=== PATIENT | female | born 1995 | race Asian ===

== ENCOUNTER 2022-06-29 21:36 | Emergency (ER) | payer OTHER, SELFPAY ==
[2022-06-29 21:40] VITALS: BP 113/56; PULSE 92; RESP 18; TEMP 36.6; O2SAT 99
--- NOTE | 2022-06-29 23:18 | ED.SKABFB ---
HPI - Skin/Abscess/Foreign Bdy General Chief complaint: Skin/Abscess/Foreign Body Stated complaint: itching to left leg Time Seen by Provider: 06/29/22 21:50 Source: patient Mode of arrival: ambulatory Limitations: no limitations History of Present Illness HPI narrative: Patient is a 26-year-old female who presents to the ED with report of red rash to lower legs. Patient reports having circular itchy lesions to her left posterior calf and right posterior thigh. She states she just noticed the lesions yesterday. They are very itchy, but nonpainful. She denies any other current lesions elsewhere. She does report having a lesion on her back last week that resolved on its own. She has not tried anything for her symptoms. Denies any new soaps, laundry detergents, lotions, known insect bites. Patient is currently 6 months . She denies any abdominal pain, abdominal rash, vaginal bleeding, leakage of fluid, fevers, difficulty breathing or swallowing. Related Data Allergies Allergy/AdvReac Type Severity Reaction Status Date / Time No Known Allergies Allergy Verified 06/29/22 23:02 Review of Systems Review of Systems: CONSTITUTIONAL: Denies fever, chills, or sweats. GASTROINTESTINAL: Denies abdominal pain, nausea, vomiting, or diarrhea. GENITOURINARY: Denies vaginal bleeding, dysuria or hematuria. SKIN: See HPI. MUSCULOSKELETAL: See HPI. NEUROLOGIC: Denies tingling, numbness, or weakness. All systems reviewed & are unremarkable except as noted in HPI and below PMFSH Past Medical History Medical History (Updated 06/30/22 @ 01:49 by Jen Green PA-C) No pertinent past medical history Surgical History Surgical History (Updated 06/30/22 @ 01:49 by Jen Green PA-C) No pertinent past surgical history Social History Social History (Updated 06/30/22 @ 01:49 by Jen Green PA-C) Smoking status: Never smoker Exam Narrative: GENERAL: Well appearing, well-nourished, non-toxic, in no acute distress. HEAD: Normocephalic, atraumatic. NECK: Supple. No adenopathy, no masses. RESPIRATORY: Airway patent, respirations nonlabored. CARDIOVASCULAR: Regular rate and rhythm without murmurs, rubs, or gallops. Peripheral pulses 2+ and equal bilaterally. ABDOMINAL: Soft, uterus gravid, nontender, nondistended, no hepatosplenomegaly. Normoactive BS. MUSCULOSKELETAL: Moves all extremities. Strength/ROM intact without gross deformities. SKIN: Warm, dry, normal color. 1 erythematous circular papule, nickel sized to left lateral posterior calf, nontender. 4-5 smaller erythematous circular papules to right posterior distal thigh/knee, nontender. NEURO: A&O X3. Speech clear. Cranial nerves II-XII grossly intact. Steady gait. No ataxic movements. PSYCHIATRIC: Appropriate mood and affect. Normal interaction. Course Vital Signs Vital signs: Vital Signs Temperature 98 F 06/29/22 21:40 Pulse Rate 92 06/29/22 21:40 Respiratory Rate 18 06/29/22 21:40 Blood Pressure 113/56 L 06/29/22 21:40 Pulse Oximetry 99 06/29/22 21:40 Oxygen Delivery Room Air 06/29/22 21:40 Temperature 98 F 06/29/22 21:40 Pulse Rate 92 06/29/22 21:40 Respiratory Rate 18 06/29/22 21:40 Blood Pressure 113/56 L 06/29/22 21:40 Pulse Oximetry 99 06/29/22 21:40 Oxygen Delivery Room Air 06/29/22 21:40 MDM - Skin/Abscess/Foreign Bdy MDM Narrative Medical decision making narrative: Patient presented to ED with few small scattered papular lesions, itchy. Exam most consistent with insect bites versus mosquito bites versus contact dermatitis. Does not appear urticaria like. Does not appear psoriasis or plaque-like. No pustules, vesicles, blisters. No surrounding redness, warmth or other signs of infection. No systemic signs of infection. Patient is currently . Denies issues with . Denies abdominal pain or bleeding. Denies abdominal rash new stretch velazco. This does
[2022-06-29] MEDS: diphenhydrAMINE HCl CAP 25 MG CAPSULE PO (23:28)
== END 2022-06-29 23:31 | disposition home or self-care (01) ==
PROVIDERS: Emergency Provider Physician Assistant
DX: L25.9 Unspecified contact dermatitis, unspecified cause (principal); S80.862A Insect bite (nonvenomous), left lower leg, initial encounter; W57.XXXA Bitten or stung by nonvenomous insect and other nonvenomous arthropods, initial encounter
CPT/HCPCS: 99283; A9270

== ENCOUNTER 2022-09-14 04:58 | Inpatient (IN) | payer OTHER, MEDICAID, SELFPAY ==
[2022-09-14] VITALS (233 sets, daily range): BP systolic 67–197; BP diastolic 45–175; PULSE 58–224; RESP 16–18; TEMP 36.5–39.4; O2SAT 78–100; BMI 27.4
--- NOTE | 2022-09-14 05:45 | LDADM ---
This patient, Benjamin Lopez, was admitted to Labor/Delivery/Recovery 107 on 09/14/22 at 04:58. Plans for labor, pain management and were discussed with patient. Patient/family oriented to hospital policies and general routines including ID bracelet, bed and alarms, visiting hours, pain management, procedures, bathroom and other care routines, personal items, smoking policy, room service/diet and guest tray routines, infant security routines, and visiting hours. Patient/Family are encouraged to report perceived risks to care and to ask questions if they do not understand what they are told or what they should do. See [facility]BIX for further documentation.
[2022-09-14] MEDS: OXYTOCIN 30 UNITS/NS 500 ML 30 UNITS/500 ML BAG 6 UNITS IV CONT (05:56)
[2022-09-14] MEDS: LACTATED RINGERS 1,000 ML 125 ML IV CONT ×4 (05:56→22:00)
[2022-09-14 06:02] LABS: Basophils Percent Auto 0.3 % (0.2-1.2); Eosinophils Absolute Auto 0.2 K/mm3 (0-0.3); Eosinophils Percent Auto 1.4 % (0-4.4); Hematocrit 38.2 % (37.0-47.0); Hemoglobin 13.1 g/dL (12.0-15.0); Immature Granulocyte Absolute 0.12 K/mm3 (0.00-0.031); Immature Granulocyte Percent A 1.1 % (0-0.5); Lymphocytes Absolute Auto 2.73 K/mm3 (0.9-3.2); Mean Corpuscular HGB Conc 34.3 g/dl (32-36); Mean Corpuscular Hemoglobin 32.6 pg (26-34); Mean Platelet Volume 11.4 fl (7.4-10.4); Monocytes Absolute Auto 0.7 K/mm3 (0.1-0.6); Monocytes Percent Auto 5.7 % (2.6-8.5); Neutrophils Absolute Auto 7.7 K/mm3 (1.3-6.7); Neutrophils Percent Auto 67.5 % (45.5-73.1); Platelet Count Result 218 k/mm3 (150-375); Red Blood Count 4.02 M/mm3 (4.2-5.4); Red Cell Distribution Width 12.7 % (11.5-14.5); White Blood Count 11.4 K/mm3 (4.5-10.0)
--- NOTE | 2022-09-14 08:28 | WPDHPUPDATE1 ---
History and Physical Update Update Date/Time: 09/14/22 08:28 26-year-old 1 at term who presented with rupture membranes. Reassuring heart tones, to start Pitocin and external monitoring and expectant management. History and Physical has been reviewed, including an updated exam of the patient. There are NO changes in the patient's condition. Risks, benefits, and alternatives have been discussed and questions answered. Patient agrees to proceed with procedure.
[2022-09-14] MEDS: fentaNYL CITRATE INJ (*CRX) 100 MCG/2 ML VIAL 50 MCG IV PUSH (08:37)
--- NOTE | 2022-09-14 09:31 | WPDANESEPPF ---
Anes - Initial Pre Proc Eval Date/Time: 09/14/22 09:31 Surgeon: Day Villalta MD Pre Op Diagnosis: SROM Patient Data Age: 26 Gender: F Height: 1.55 m Weight: 65.9 kg Last Vital Signs Temp 36.6 C 09/14/22 06:30 Pulse 72 09/14/22 09:29 Resp 16 09/14/22 06:30 BP 108/61 09/14/22 09:29 Pulse Ox 100 09/14/22 09:30 O2 Del Method Room Air 09/14/22 05:45 Allergies Allergy/AdvReac Type Severity Reaction Status Date / Time doxycycline Allergy Rash Verified 09/14/22 06:32 Home Medications Medication Instructions Recorded Confirmed Type betamethasone valerate 0.1 % 1 applic topical BID PRN itching 06/29/22 Rx topical cream #15 grams albuterol sulfate 90 mcg/actuation inhalation 08/29/22 History aerosol inhaler prenat.vits,danni,zad-pwvy-sloqc 1 tablet 08/29/22 History Laboratory Tests 09/14/22 05:55 WBC 11.4 H K/mm3 (4.5-10.0) RBC 4.02 L M/mm3 (4.2-5.4) Hgb 13.1 g/dL (12.0-15.0) Hct 38.2 % (37.0-47.0) MCV 95.0 fl (80-100) MCH 32.6 pg (26-34) MCHC 34.3 g/dl (32-36) RDW 12.7 % (11.5-14.5) Plt Count 218 k/mm3 (150-375) MPV 11.4 H fl (7.4-10.4) Immature Gran % (Auto) 1.1 H % (0-0.5) Neut % (Auto) 67.5 % (45.5-73.1) Lymph % (Auto) 24.0 % (18.3-44.2) [place] % (Auto) 5.7 % (2.6-8.5) Eos % (Auto) 1.4 % (0-4.4) Baso % (Auto) 0.3 % (0.2-1.2) Lymph # (Auto) 2.73 K/mm3 (0.9-3.2) [place] # (Auto) 0.7 H K/mm3 (0.1-0.6) Eos # (Auto) 0.2 K/mm3 (0-0.3) Baso # (Auto) 0.0 K/mm3 (0.0-0.1) Abs Immat Gran (auto) 0.12 H K/mm3 (0.00-0.031) Absolute Neuts (auto) 7.7 H K/mm3 (1.3-6.7) Absolute Nucleated RBC 0.0 K/mm3 (0.0-0.012) Nucleated RBC % 0.0 % (0.0-0.2) RPR Pending Blood Type B Positive Antibody Screen Negative Patient hx anesthesia problems: none Family hx anesthesia problems: none Results Review: All pre-operative results and documents have been reviewed as part of the pre-operative evaluation. [facility] Past Medical History Medical History No pertinent past medical history Surgical History Surgical History No pertinent past surgical history Family History Family History Father Diabetes mellitus Social History Social History Smoking status: Never smoker Substance use: never Lack of Transportation: No Lack of Food: Never True Current Housing: I Have Housing Concerned About Future Housing: No Difficulty Paying Gas/Electric Bills: No Difficulty Paying for Meds: No Currently Unemployed: No Education: Bachelor's Degree Difficulty w/ Childcare or Family Care: No Spiritual care concerns: No Anes - Eval Final PreProcedure Day of Procedure 09/14/22 09:31 Patient weight: overweight Heart: regular rate and rhythm Lungs: clear to auscultation Neurological: alert and oriented ASA classification: II Emergent: no Anesthetic plan: proceed Anesthesia type and monitoring: regional epidural and standard monitoring Results Review: All pre-operative results and documents have been reviewed as part of the pre-operative evaluation. Informed Consent: The patient's anesthetic plan and its attendant risks and benefits were discussed with the patient/family/POA. Questions were solicited and answers provided to the satisfaction of the patient/family/POA.
[2022-09-14] MEDS: PHENYLEPHRINE 1,000 MCG/10 ML SYRINGE 100 MCG IV PUSH ×2 (10:37→10:49)
--- NOTE | 2022-09-14 14:50 | WPDOBADMIT ---
Obstetrics - Admit Note Admission Note: record reviewed. No pertinent additions to the history and/or any subsequent changes in the physical findings that are not consistent with the expected course of the were found. Pt arrived in labor with SROM, anticipate vaginal delivery Additions to the history and/or subsequent changes in the physical findings follow. None.
[2022-09-14] MEDS: LORATADINE 10 MG TABLET PO (17:06)
--- NOTE | 2022-09-14 21:09 | P.PCNOB_ITS ---
OB - Delivery Note Procedure Delivery date: 09/14/22 Procedure: Delivery augmentation: Pitocin Route of delivery: Laceration Description: Perineal - 1st Degree Delivery repair: vicryl Specimen: No Quantitative Blood Loss (ml): 85 Anesthesia type: Epidural Disposition: Floor Baby Date of : 09/14/22 Time of : 20:59 Weeks of gestation at delivery: 38 gender: Male presentation: vertex position: Left Occiput Anterior Placenta delivery description: Spontaneous Cord Vessel Description: 3 Vessels and Clamped/Cut score one minute: 8 score five minutes: 9 Narrative: head delivered and moved to GEORGE position, anterior arm delivered under pubic bone with out difficulty., compound presentation with both hands up, unab le to deliver posterior arm, slowly delivered body. mother and baby skin to skin in stable condition
[2022-09-14] MEDS: OXYTOCIN 30 UNITS/NS 500 ML 30 UNITS/500 ML BAG 125 UNITS IV CONT (21:28)
[2022-09-14] MEDS: ONDANSETRON INJ 4 MG/2 ML VIAL IV PUSH (21:40)
[2022-09-14] MEDS: IBUPROFEN 600 MG TABLET PO (22:00)
[2022-09-14] MEDS: AMPICILLIN 2 GM/NS 100 ML 2 GM/100 ML BAG 200 GM (22:40)
[2022-09-14] MEDS: ACETAMINOPHEN 325 MG TABLET 650 MG PO (23:21)
[2022-09-14] MEDS: DIBUCAINE 1% OINTMENT 30 GM TUBE 1 APPLIC TOPICAL (23:30)
[2022-09-14] MEDS: WITCH HAZEL 40 PADS 1 PAD TOPICAL (23:30)
[2022-09-14] MEDS: BENZOCAINE 20% AER SPR (*SP) 56 GM CAN 1 SPRAY TOPICAL (23:30)
--- NOTE | 2022-09-14 23:35 | OBPPTRN ---
Patient transferred to post room #292 via (wheelchair). Support person present. Oriented to unit, room, information board, rooming in, admission packet and security measures. Patient verbalizes understanding.
[2022-09-14] MEDS: CLINDAMYCIN 900 MG/D5W 50 ML 900 MG/50 ML PIGGYBACK 100 MG (23:50)
[2022-09-15] MEDS: GENTAMICIN 60 MG/50 ML NS 60 MG/50 ML BAG 100 MG IVPB ×3 (01:00→19:00)
[2022-09-15] MEDS: AMPICILLIN 1 GM/NS 50 ML 1 GM/50 ML BAG IVPB ×5 (03:00→19:45)
[2022-09-15 04:58] VITALS: BP 89/55; PULSE 95; RESP 16; TEMP 36.9; O2SAT 95
[2022-09-15 05:27] LABS: Hematocrit 28.5 % (37.0-47.0); Hemoglobin 9.7 g/dL (12.0-15.0)
[2022-09-15 07:45] VITALS: BP 106/63; PULSE 78; RESP 18; TEMP 36.3; O2SAT 97
[2022-09-15] MEDS: POLYSACCHARIDE IRON COMPLEX 150 MG CAPSULE PO ×2 (09:34→17:59)
[2022-09-15] MEDS: DOCUSATE SODIUM 100 MG CAPSULE PO ×2 (09:35→17:44)
[2022-09-15] MEDS: MULTIVIT/MIN/PREN/FOL AC/IRON TABLET 1 TAB PO (09:35)
[2022-09-15] MEDS: IBUPROFEN 600 MG TABLET PO ×2 (09:41→22:15)
--- NOTE | 2022-09-15 10:04 | P.PNOB_ITS ---
OB - PN: Subj Subjective Date/time seen: 09/15/22 10:04 Patient comments: no complaints, pain well controlled, incisional pain, tolerating diet and flatus present OB - PN: Obj Data Labs 09/15/22 05:16 Labs: Laboratory Results - last 24 hr 09/15/22 05:16 Hgb 9.7 L D Hct 28.5 L OB - PN A/P Plan day: 1 Plan: routine care Comments: No problems, routine care Time Spent With Patient Time: Total time spent is greater than 50% in coordination of care (as documented) at patient's floor/unit and/or counseling patient: Exam Const: General: comfortable, no acute distress and alert Resp: Effort & Inspection: normal respiratory effort Auscultation: no crackles, no rales and no rhonchi Cardio: Rate: regular rate Heart sounds: no click, no murmurs and no rubs GI: Inspection: non-distended GI Palp: No Tenderness to palpation present ( GI) Auscultation: normal bowel sounds Other: Incision - CDI Extrem: General: normal to inspection, no pedal edema and no calf tenderness
[2022-09-15] MEDS: CLINDAMYCIN 900 MG/D5W 50 ML 900 MG/50 ML PIGGYBACK 50 MG IVPB ×2 (10:23→17:44)
[2022-09-15 11:45] VITALS: BP 103/61; PULSE 79; RESP 16; TEMP 36.9; O2SAT 100
[2022-09-15] MEDS: LACTATED RINGERS 1,000 ML 125 ML IV CONT (15:36)
[2022-09-15 19:21] VITALS: BP 95/64; PULSE 88; RESP 18; TEMP 36.8; O2SAT 99
--- NOTE | 2022-09-16 07:16 | PM.OBPRVD ---
OB - Delivery Note Procedure Delivery date: 09/14/22 Procedure: Delivery augmentation: Pitocin Delivery monitor: External FHT and External Uterine Route of delivery: Laceration Description: Perineal - 1st Degree Delivery repair: vicryl Specimen: No Quantitative Blood Loss (ml): 85 Anesthesia type: Epidural Disposition: Floor Baby Date of : 09/14/22 Time of : 20:59 Weeks of gestation at delivery: 38 Infant gender: Male presentation: vertex position: Left Occiput Anterior Placenta delivery description: Spontaneous Cord Vessel Description: 3 Vessels and Clamped/Cut score one minute: 8 score five minutes: 9
--- NOTE | 2022-09-16 07:47 | PM.OBPNVD ---
OB - PN: Subj Subjective Date/time seen: 09/16/22 07:47 Patient comments: no complaints and pain well controlled baby status: doing well [place] feeding status: breast and bottle feeding Narrative: Afebrile since initial fever. s/p antibiotics. OB - PN: Obj Data Labs 09/15/22 05:16 OB - PN A/P Plan day: 2 Plan: routine care and discharge home Comments: circumcision today, consented. Time Spent With Patient Time: Total time spent is greater than 50% in coordination of care (as documented) at patient's floor/unit and/or counseling patient: Time with patient: less than 15 minutes Exam Narrative: NAD abdomen soft, nontender, fundus firm below the umbilicus Extremities nontender, 1+ edema
--- NOTE | 2022-09-16 07:49 | PM.OBDSVD ---
DS: Admitting Diagnosis Discharge Date 09/16/22 Admitting Diagnosis labor at 38w DS: Discharge Diagnosis Discharge Diagnosis (1) , delivered: Code(s): O80 - Encounter for full-term uncomplicated delivery Status: Acute OB - DS: Summary Hospital Course Hospital Course: Benjamin was admitted for labor at term and proceeded to have an uncomplicated vaginal delivery. She was febrile a couple hours after delivery and received antibiotics for 24 hours and had no further fevers. She was discharged home on PPD2 in stable condition. OB Procedures : Ultrasound OB Procedures Intrapartum: Spontaneous Vag Delivery OB Procedures: : None Peripartum Data Infant Delivery Method: Natural Vaginal complications: other (chorioamnionitis) Status at Discharge Functional status at discharge: independent ambulation Time Spent with Patient Time attestation: Total time spent providing and/or coordinating discharge services: Exam Narrative: NAD abdomen soft, appropriately tender Ext non tender, 1+ edema Discharge Plan Discharge Attending physician on discharge: Day Villalta Discharging Clinician: Day Villalta Anticipated Discharge Date/Time: 09/16/22 07:48 Patient Disposition: Home, Self-Care Activity: pelvic rest Diet: regular Patient Instructions: Antibiotic Form Stand Alone Forms: General Discharge Information Follow-up/Referrals: Day Villalta MD [Physician] - 4 Weeks Discharge Medications: Continued betamethasone valerate 0.1 % cream 1 applic topical BID PRN (Reason: itching) Qty: 15 0RF albuterol sulfate 90 mcg/actuation HFA aerosol inhaler INHALATION #2 Tablet 1 tablet Date of admission: 09/14/22 04:58 Primary Care Provider: PHYSICIAN NOT ON STAFF,NONSTAFF Admitting Provider: Day Villalta Attending physician on admission: Day Villalta Condition: Stable
[2022-09-16 08:00] VITALS: PULSE 85; RESP 16; O2SAT 99
[2022-09-16 08:45] VITALS: BP 100/61; PULSE 85; RESP 16; TEMP 36.9; O2SAT 99
[2022-09-16] MEDS: DOCUSATE SODIUM 100 MG CAPSULE PO ×2 (09:09→17:50)
[2022-09-16] MEDS: LORATADINE 10 MG TABLET PO (09:09)
[2022-09-16] MEDS: IBUPROFEN 600 MG TABLET PO ×2 (09:09→17:49)
[2022-09-16] MEDS: MULTIVIT/MIN/PREN/FOL AC/IRON TABLET 1 TAB PO (09:10)
[2022-09-16] MEDS: POLYSACCHARIDE IRON COMPLEX 150 MG CAPSULE PO ×2 (09:10→17:50)
[2022-09-16 13:50] LABS: Rapid Plasma Reagin Non-Reactive (NonReactive)
--- NOTE | 2022-09-16 14:10 | PC.NURSE ---
Report received this morning that mother is bottle feeding due to painful cramps.
[2022-09-17 10:49] VITALS: BP 101/71; PULSE 80; RESP 18; TEMP 37.1; O2SAT 100
== END 2022-09-16 19:20 | disposition home or self-care (01) | DRG 807 ==
LOC: ANHLDR 05:40 → ANHOB2 23:37
PROVIDERS: Advanced Practice Midwife; Admitting Provider Obstetrics & Gynecology; Visit Provider Obstetrics & Gynecology
DX: O69.81X0 Labor and delivery complicated by cord around neck, without compression, not applicable or unspecified (principal); Z37.0 Single live birth; O70.0 First degree perineal laceration during delivery; Z3A.38 38 weeks gestation of pregnancy
CPT/HCPCS: 36415; 85014; 85018; 85025; 86592; 86850; 86900; 86901; A9270; J0290; J1580; J2371; J2405; J2590; J2795; J3010; J7120

== ENCOUNTER 2024-06-01 13:18 | Outpatient (CLI) | payer OTHER, SELFPAY ==
[2024-06-01 14:38] LABS: Beta HCG Quantitative < 2.39 mIU/ML
--- OUTSIDE RECORDS SUMMARY | 2024-06-01 14:42 | XMS_ITS | Data Portability ---
Author Organization [facility] [place] Address [address] [place] [address] Care Team Providers Care Rotary Soil Stabilizer Name Role Phone DAY TORRES Primary Care Provider Assessment Encounter Date Assessment Date Assessment LastModified by Organization Details LastModified Time 10/14/2022 10/14/2022 Normal exam May resume normal activities contraceptive plan-- POP FU for WWE Jessee [email or web address] Not available 10/14/2022 17:12:42 03/19/2023 03/19/2023 Annual gynecological exam performed. Patient will come back in a year unless there are new symptoms. Take Calcium with Vitamin D 1200mg daily if not receiving in daily diet. It is strongly advised to have an annual flu shot and up can obtain at most pharmacies. If you have not had a TDap shot in the last 10 years you should obtain one as well. Discussed with patient & provided with information regarding Gardisil vaccine to prevent the 4 strains for HPV that cause cervical cancer if under age 26. Encourage safe sexual practices, to use condoms and limit partners if not already in a monogamous relationship. Do monthly self breast exams. Have mammogram yearly or every other year depending on family history. BRCA testing is now available for patients with strong genetic history of female cancer. If interested contact the office. Engage in daily exercise of low impact aerobic exercise 45-60 minutes 4-5 times weekly. Avoid tobacco and illicit drugs as well as using moderation with alcohol intake less than 1-2 8 oz beverages daily. This lifestyle behavior pattern will lead to less health conditions and longer life span. If BMI greater than 25 weight watchers or dietary consult advised. Patient received above instructions, and questions have been answered. If you have any questions please call or respond to this email. Patient was made aware of the patient portal and may obtain a paper copy of today's plan if desired. Not available 03/19/2023 09:50:17 Plan of Treatment Reminders Order Date Submit Date Provider Last Modified By Organization Details Last Modified Time Details Appointments NEW PATIENT PROBLEM 2024 12:15P Marie FAY MD Not available Not available Not available Lab None recorded. Referral None recorded. Procedures None recorded. Surgeries None recorded. Imaging None recorded. Medication Orders norethind ramon (contrace ptive) 0.35 mg tablet [address] [facility] [place], [address], 06/01/2024 12:56:36 norethind ramon (contrace ptive) 0.35 mg tablet [address] [facility] [place], [address], 06/01/2024 12:56:36 Patient TargetsNo targets recorded. Patient InstructionsNo instructions recorded. Reason for Referral None Reported. Results Created Date Observation Date Name Description Value Unit Range Abnormal Flag Note LastModifiedBy Organization Detail LastModifiedTime 03/19/1903/19/2023 IMAGE GUIDE D PAP, REFLE X HPV IF ASCUS ONLY image guided Pap, reflex HPV ASCUS only SEE RESULT S BELOW CASE REPOR T: Cytol ogy Gynec ologi danni Repor t Case: [id number] Autho rome trevino Provi surya: Karen Pearson, HOMA Colle cted: 03/19 1540 Order ing Locat ion: [place] [facility] Recei anali: 03/20 0740 First Scree n: Norah Reese, CT Rescr een: Malgorzata Cabrera Speci men: Scree bob Pap - Image d, Cervi x STATE MENT OF ADEQU ACY: Satis facto ry for evalu ation Trans forma tion zone compo nent absen t The absen ce of an endoc ervic al compo nent was confi rmed by an addit ionrica hernandez ner. FINAL DIAGN OSIS: Negat moris for Intra epith elial Lesio n or Tellojesenia tommy (NIL) . Elect nataly henry nilton d by Malgorzata Cabrera on 2023 at 5:52 PM ----- ----- ----- ----- ----- ----- ----- ----- ----- ----- ----- ----- ----- ----- ----- ----- ----- ---- COMME NT: This speci men was revie wed by a Cytot echno logis t and/o r Patho logis t (as indic ated in this repor t) after evalu ation using the Thinp rep Imagi ng Syste m. CLINI DANNI INFOR MATIO N: Menst rual Statu s: LMP (if appli cable ): Clini danni Histo ry/Pr eviou s Pap: Type of Neopl alfie (if appli cable ): Signi fican t Clini danni Findi ngs: Other Histo ry: Hormo sachi (if appli cable ): PAP EDUCA SYLVIA L NOTE: The Pap Test is a scree bob test with an inher ent false negat moris rate. Liqui d-bas ed sampl ing may decre ase, but will not elimi genaro, false negat moris resul ts. A negat moris resul t does not precl ude the prese nce and/o r devel opmen t of disea se, since the prese nce of abnor mal cells in the sampl e depen ds on the locat ion of the lesio n and sampl ing techn ique. Carlos nued regul ar scree bob is the best metho d of cance r preve ntion . If repor vinnie cytol ogic findi ng do not corre late with physi danni and/o r histo rical findi ngs, furth er inves tigat ion is recom maria luz d, as clini nataly hilton nted. Not Available [facility] (Lab) [address], [place], [address], 03/21/2023 18:55:40 08/29/19 23 08/28/2022 US, obste tric, follo w-up No observ ation record ed. [email or web address] [address], [place], [address], 10/10/2022 15:37:04 08/29/19 23 08/28/2022 US, obste tric, follo w-up No observ ation record ed. [email or web address] [place] [address], [place], [address], 08/28/2022 13:49:42 Result Notes None recorded. Problems Name Problem SNOMED Code Status Onset Date Resolution Date Notes Provider Name and Address Organization Details Recorded Time 58356511 Completed 202209/26/2022 Ruddy Grantle [facility], [facility] 3 13:34:22 Asthma in 31366043769 103 Completed Martaaney Corrie [facility], [facility] 3 13:34:16 Asthma in 51300046891 103 Active Martaaney Corrie [facility], [facility] 3 13:34:16 Anxiety in 19386217826 109 Active zoloft Ruddy Alexanderizzle [facility], [facility] 3 13:34:16 Anxiety in 28058864082 109 Completed zoloft Martaaney Corrie [facility], [facility] 3 13:34:16 Uterine size for dates discrepan cy 517371536 Active Martaaney Corrie [facility], [facility] 3 13:34:16 Uterine size for dates discrepan cy 199363983 Completed Martaaney Corrie [facility], [facility] 3 13:34:16 Problem Notes None recorded. Procedures Surgical History Date Name Laterality Status Provider Name and Address Organization Details Recorded Time 03/19/2023 Date of Last Pap Smear completed [place] Waters [facility] 06/01/2024 12:56:59 Imaging Results Imaging Date Name Status LastModified by Organiz ation Details LastModified Time 08/28/2022 US, obstetric, follow-up completed [email or web address] [address], [place], [address], 10/10/2022 15:37:04 08/28/2022 US, obstetric, follow-up completed [email or web address] [place] [address], [place], [address], 08/28/2022 13:49:42 Procedure Notes None recorded. Medical Equipment None Reported. Allergies Allergen ID Allergen Name Allergen Category Reaction Reaction Severity Criticality Documentation Date Start Date Code Code System Note Provider Name and Address Organization Details Recorded Time 94632 doxycycli ne Not available rash Not available Not available 02/20/2022 3640 RxNorm Ericka dent, [facility] 2 12:53:16 Medications Name Sig Start Date Stop Date Status Note LastModified by Organization Details LastModified Time Diflucan 150 mg tablet Take 1 tablet every 72 hours by oral route for 6 days. 10/14 completed Not Available Not Available Not Available levothyroxi ne 25 mcg tablet Take 1 tablet every day by oral route. 10/14 completed Not Available Not Available Not Available betamethaso ne valerate 0.1 % topical cream 10/14 completed Not Available Not Available Not Available albuterol sulfate HFA 90 mcg/actuati on aerosol inhaler Inhale 2 puffs every 4 hours by inhalatio n route as needed. 10/14 completed Not Available Not Available Not Available norethindro ne (contracept moris) 0.35 mg tablet TAKE 1 TABLET BY MOUTH ONCE DAILY 06/01 completed Not Available Not Available Not Available sertraline 50 mg tablet Take 1 tablet every day by oral route. 10/14 completed Not Available Not Available Not Available metoclopram jenna 10 mg tablet Take 1 tablet 4 times a day by oral route. 10/14 completed Not Available Not Available Not Available 06/01 completed Not Available Not Available Not Available Vitals Date Recorded Body height Body mass index (BMI) Body weight Systolic blood pressure Diastolic blood pressure Provider Name and Address Organization Details Last Updated DateTime 09/11/2022 154.94 cm 27.4 kg/m2 64898.89 365 g 101 mm[Hg] 64 mm[Hg] [facility] 3 11:16:35 Date Recorded Body height Body mass index (BMI) Body weight Systolic blood pressure Diastolic blood pressure Provider Name and Address Organization Details Last Updated DateTime 10/14/2022 154.94 cm 24 kg/m2 51581.23 g 105 mm[Hg] 72 mm[Hg] [facility] 3 16:53:29 Date Recorded Body height Body mass index (BMI) Body weight Systolic blood pressure Diastolic blood pressure Provider Name and Address Organization Details Last Updated DateTime 03/19/2023 154.94 cm 25.9 kg/m2 21799.15 g 100 mm[Hg] 68 mm[Hg] Manda Mak [facility] 4 09:36:19 Date Recorded Body height Body mass index (BMI) Body weight Systolic blood pressure Diastolic blood pressure Provider Name and Address Organization Details Last Updated DateTime 06/01/2024 157.48 cm 25.2 kg/m2 64369.75 g 102 mm[Hg] 69 mm[Hg] [place] [facility] 5 12:56:24 Social History Question Answer Notes LastModified by Organizat ion Details LastModified Time Tobacco Smoking Status Current Some Day Smoker Manda Mak [facility] 03/19/2023 09:37:30 What Is Your Level Of Alcohol Consumption? None [email or web address] Information not available 02/20/2022 If You Are , What Was Your Level Of Alcohol Consumption Prior To ? Occasional Information not available 03/19/2023 Are You Blind Or Do You Have Difficulty Seeing? No [email or web address] Information not available 02/20/2022 What Is Your Level Of Caffeine Consumption? None Information not available 03/19/2023 How Much Tobacco Do You Chew? None [email or web address] Information not available 02/20/2022 In The 14 Days Before Symptom Onset, Have You Had Close Contact With A Laboratory-confir med COVID-19 While That Case Was Ill? No [email or web address] Information not available 02/20/2022 In The 14 Days Before Symptom Onset, Have You Had Close Contact With A Person Who Is Under Investigation For COVID-19 While That Person Was Ill? No [email or web address] Information not available 02/20/2022 Have You Been To An Area Known To Be High Risk For COVID-19? No [email or web address] Information not available 02/20/2022 Are You Deaf Or Do You Have Serious Difficulty Hearing? No [email or web address] Information not available 02/20/2022 What Type Of Diet Are You Following? REGULAR [email or web address] Information not available 02/20/2022 What Is The Highest Grade Or Level Of School You Have Completed Or The Highest Degree You Have Received? [id number] Information not available 02/20/2022 What Is Your Occupation? Student Information not available 03/19/2023 Are There Any Guns Present In Your Home? No [email or web address] Information not available 02/20/2022 Do You Use Protection During Sex? Usually [email or web address] Information not available 02/20/2022 Do You Use Your Seat Belt Or Car Seat Routinely? Yes [email or web address] Information not available 02/20/2022 Do You Have Smoke And Carbon Monoxide Detectors In Your Home? No [email or web address] Information not available 02/20/2022 How Much Tobacco Do You Smoke? No [email or web address] Information not available 02/20/2022 Do You Feel Stressed (tense, Restless, Nervous, Or Anxious, Or Unable To Sleep At Night)? [id number] Information not available 03/19/2023 Do You Use Any Illicit Or Recreational Drugs? No Information not available 02/20/2022 Do You Use Sunscreen Routinely? No [email or web address] Information not available 02/20/2022 Has Tobacco Cessation Counseling Been Provided? No Information not available 03/19/2023 Have You Used IV Drugs? No [email or web address] Information not available 02/20/2022 Do You Or Have You Ever Used Any Other Forms Of Tobacco Or Nicotine? No Information not available 03/19/2023 Sex: Unknown Functional Status Question Answer Note LastModified by Organizat ion Details LastModified Time Do you have difficulty walking or climbing stairs? No Information not available 03/19/2023 Are you able to walk? YESWOREST [email or web address] Information not available 02/20/2022 Are you able to care for yourself? Yes Information not available 03/19/2023 Do you have difficulty dressing or bathing? No Information not available 03/19/2023 What is your exercise level? None Information not available 02/20/2022 Mental Status None recorded. Family History Relationship Description Onset Age of this Age Resolved Age Notes LastModified by Organization Details LastModified Time Unspecified Relation Family history unknown [email or web address] Not available 02/20 12:40:01 Maternal Aunt Malignant tumor of breast [email or web address] Not available 02/20 12:52:22 Father Diabetes mellitus [email or web address] Not available 02/20 12:52:32 Medical History Condition Response Allergies (Food, seasonal, environmental ) N Other N Drug/Latex Allergies/Reactions Y Blood Transfusion N Breast Cancer N Dermatologic Disorders N Lung Disease N Defects or Inherited Disease N Breast Problem N Gestational Diabetes N Hematologic disorders N Anesthesia Complications N History of STI N Deep Vein Thrombosis N Polycystic ovary syndrome N Anxiety Disorder N Autoimmune disease N Arthritis N Polyps N Infertility N Acid Reflux (GERD) N History of abnormal pap N Cancer N Varicosities N Stroke N Neurologic/Epilepsy N Endometriosis N High Cholesterol N Fibromyalgia N Headaches N Kidney Disease N Heart Problems N Thyroid Problems N Kidney or Bladder Problems N GI Problems N Eating Disorder N Anemia N Art (IVF or FET) N Psychiatric Illness N Ovarian Cancer N Diabetes N Pulmonary (TB, Asthma) N Hepatitis/Liver Disease N No Past Medical History Y Eczema N Urinary Tract Infection N Abuse/Domestic Violence N Asthma N Trauma/Violence N Depression/ depression N Heart Disease N Pre-Eclampsia N Hypertension N Osteoporosis N Thrombophilias N Gynecological History Statement/Question Response Abnormal Pap N Flow Moderate Date of Last Mammogram Date of LMP 03/06/2024 N On BCP's at Conception? N STIs/STDs N Was last menstrual period normal Y HPV Vaccine N Duration of Flow (days) 4 Current Control Method Condoms Are cycles usually normal N Sexually Active? Y Condoms Menses Monthly N Date of DEXA bone scan Age of first menstrual cycle 12 Date of Last Pap Smear 03/19/2023 Sexual Problems? N LMP Approximate Desired Control Method Condoms N Obstetrics History GPAL:G 1 P 1 0 0 1 Type Value Full Term 1 Living 1 Total 1 Past Encounters Encounter ID Performer Location Encounter Start Date Encounter Closed Date Diagnosis/Indication Diagnosis SNOMED-CT Code Diagnosis ICD10 Code Diagnosis Note [id number] Sheridan Alvarez [place] [address],[place] [address] 02/20/2022 11:43:39 02/20/2022 12:41:43 Uncertain viability of 006162207 O36.80X0 Z3A.08 [id number] [facility] [address],[place] [address] 02/20/2022 11:45:10 02/20/2022 13:12:58 test positive 987075427 Z32.01 Gynecologi c examination 66327648 Z01.419 Amenorrhea 60903831 N91. 2 Nausea 329116954 R11.0 [id number] Amita Torres [place] [address],[place] [address] 03/19/2022 11:04:40 03/19/2022 15:23:35 [id number] Day Torres MD [place] [address],[place] [address] 03/19/2022 11:06:38 03/19/2022 12:24:31 Routine care 859125467 Z34.91 Asthma in 7230 899466 9150 J45.909 [id number] Day Torres MD [place] [address],[place] [address] 04/19/2022 11:09:42 04/22/2022 16:20:41 Routine care 397438421 Z34.91 [id number] Amita Torres [place] [address],[place] [address] 05/14/2022 11:00:14 05/14/2022 12:33:13 screening for malformation 959032261 Z36.3 [id number] MD Zoila Yanez [address],[place] [address] 05/14/2022 11:02:28 05/14/2022 14:50:13 Routine care 599664563 Z34.91 [id number] MD Zoila Yanez [address],[place] [address] 06/11/2022 12:16:18 06/11/2022 12:41:49 Routine care 320986602 Z34.91 [id number] MD Zoila Yanez [address],[place] [address] 07/03/2022 11:00:18 07/08/2022 15:09:01 Routine care 254894916 Z34.91 [id number] MD Zoila Yanez [address],[place] [address] 07/17/2022 11:02:50 07/17/2022 12:25:27 Routine care 127092965 Z34.91 Anxiety in 048 0758482 9109 F41.9 [id number] MD Zoila Yanez [address],[place] [address] 07/31/2022 11:13:09 07/31/2022 13:57:06 Routine care 780147264 Z34.91 Anxiety in 403 0853240 9109 F41.9 [id number] MD Zoila Yanez [address],[place] [address] 08/14/2022 12:40:17 08/14/2022 13:10:12 Uterine size for dates discrepancy 243344584 O26.849 Routine an tenatal care 069531191 Z34.91 [id number] Sheridan Alvarez [place] [address],[place] [address] 08/28/2022 09:56:00 08/28/2022 13:53:09 Uterine size for dates discrepancy 381872630 O26.843 Z3A.36 [id number] Day Torres MD [place] [address],[place] [address] 08/28/2022 09:59:23 09/05/2022 15:22:16 Routine care 504329215 Z34.91 [id number] Day Torres MD [place] [address],[place] [address] 09/06/2022 14:29:08 09/09/2022 14:35:04 Routine care 403450996 Z34.91 Candidal vulvovaginitis 52726321 B37.31 [id number] Day Torres MD [place] [address],[place] [address] 09/11/2022 11:12:05 09/11/2022 14:38:01 Routine care 726311570 Z34.91 [id number] Day Torres MD [place] [address],[place] [address] 10/14/2022 16:37:15 10/15/2022 10:36:52 care 517933282 Z39.2 Initial pr escription of oral contraception 812644105 Z30.011 [id number] Karen Gallegos CNM [place] [address],[place] [address] 03/19/2023 09:22:03 03/19/2023 10:12:05 Gynecologic examination 34157304 Z11.3 [id number] Clemente Fay MD [place] [address],[place] [address] 06/01/2024 12:10:52 06/01/2024 13:35:57 of unknown location 4770303540 75974 O26.91 this patient is a 28-year-ol d female presents for ultrasound follow-up. Her ultrasound does not show an intrauteri ne or ectopic . This is a of unknown location. We will perform serial HCGs. She will return in 3 days. We will possibly repeat ultrasound at that time. We spent more than 20 minutes on her care in total. Health Concerns Section Related Observation LastModified by Organization Detai ls LastModified Time None Recorded Concern Status LastModified by Organization Details LastModified Time None Recorded Advance Directives Directive None Recorded Payers Encounter Date Sequence Insurance Name Policy Number Policy Weber Covered Member ID Weber Member ID Guarantor Name 09/11/2022 1 [facility] [id number] [facility] [id number] [facility] 09/11/2022 2 [place] [facility] Alfia Maha [id number] [facility] 10/14/2022 1 [facility] [id number] [facility] [id number] [facility] 10/14/2022 2 [place] [facility] [id number] [facility] 03/19/2023 1 [facility] [id number] Alfia Maha [id number] [facility] 03/19/2023 2 [place] [facility] [id number] [facility] 06/01/2024 1 [facility] [id number] [facility] Notes Date Note Type Note Provider Name and Address Organization Details Recorded Time 10/14/2022 text/html Patient is a 27yo presenting for a 4 week visit. She had a on 09/14 at term weeks GA. Baby Ayzal was 6-15, doing well. Doing well overall. breast and bottlefeeding. Normal lochia. Pain- minimal. Bowel and bladder function normal. Colfax score 8 Period-none Annual due: january Concerns: none Day Torres MD [address], [place], [address], [facility] 10/15/2022 10:07:40 03/19/2023 text/html Annual GYNReport ed bypatient.History:n o gynecologic complaints Menstrual cycle:Normal menses Urinary symptoms:No hematuria; No incontinence Vulva:No genital lesion Vagina:Normal vaginal discharge Breast:No breast pain; No breast lump; No nipple discharge Current Contraception:Satis fied with current contraception Sexual complaints:No sexual complaints; No pain during intercourse; Normal libido Menopausal Symptoms:No menopausal symptoms; Normal vaginal lubrication Psychological symptoms:No depression; No anxiety; No PMDD Preventive measures:Encourage self breast examination; Encourage regular exercise; Encourage no tobacco useNotes:prefers pap, back pain,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 discussed yoga for core Karen Gallegos CNM [address], [place], [address], [facility] 03/19/2023 10:01:44 06/01/2024 text/html this patient is a 28-year-old female presents for ultrasound follow-up. Her ultrasound does not show an intrauterine or ectopic . This is a of unknown location. We will perform serial HCGs. She will return in 3 days. We will possibly repeat ultrasound at that time. We spent more than 20 minutes on her care in total. Clemente Fay MD [address], [place], [address], [facility] 06/01/2024 13:35:25 OBGyn Episode Ob Episode Information Episode Created Date Number of Fetuses Patient Bloodtype Patient rh Status Prepregnancy Weight lbs Domestic Partner Domestic Partner Phone Father Name Insurance Claim Representative Status 03/19/19 23 1 B Positive 120 CLOSED Fetus Data First Name Last Name Admitted to NICU Weight (g) Sex Living Outcome Pediatric Complications Fetus ID Race Codes Race Delivery Type 3146.79 45 M true Full Term [id number] [id number] Vaginal Delivery Problems Problem Notes Torres pt2/26 TSH WNL Problem Name Start Date End Date Resolution Snomed Code Not e Uterine size for dates discrepancy 376837089 Asthma in 0349194618 9103 Anxiety in 532311931 74678 zoloft Brijesh Calculation Initial Brijesh Date Initial Exam Date Initial Exam Provider Initial Ultrasound Date Last Menstrual Period Date Ultra Sound Weeks Gestation 09/25/2022 03/19/2022 02/20/2022 12/19/2021 8 Eighteen To Twenty Week Brijesh Update Ultra Sound Date Fundal Height At Umbil Quickening Date Ultra Sound Latest Weeks Gestation Final Brijesh Confirmed By Final Brijesh Confirmed Date Final Brijesh Date Ultra Sound Latest Days Gestation 0 03/19/2022 09/26/19 23 0 Pre-marcia Flowsheet Flowsheet Date 03/19/2022 Pina Score Blood Edema Fundus Height Fundus Units Glucose Ketones Leukocytes Nitrite Labor Signs Protein Cervic Dilation Cervic Effacement Cervic Station Type Weight in lbs Pre/Post Dialysis Refused BP Diastolic BP Location Tested BP Systolic BP Type Fetus Heart Rate Present Fetus Movement Comments Flowsheet Date 03/19/2022 Pina Score Blood Edema Fundus Height Fundus Units Glucose Ketones Leukocytes Nitrite Labor Signs Protein Cervic Dilation Cervic Effacement Cervic Station neg none none trace Type Weight in lbs Pre/Post Dialysis Refused Weight 117.686507042588 BP Diastolic BP Location Tested BP Systolic BP Type 67 103 Fetus Heart Rate Present A 165 Fetus Movement A No Comments Benjamin is a 26yo G1 at 12.6 f or care. Her history is noncontributory except for asthma, which has been worse since COVID in 2019. She has had all COVID vaccines and flu shot. She needs an albuterol script. N/V improving but still using reglan regularly. Declines genetic testing, PNL today. Normal NT today. Routine care. Flowsheet Date 04/19/2022 Pina Score Blood Edema Fundus Height Fundus Units Glucose Ketones Leukocytes Nitrite Labor Signs Protein Cervic Dilation Cervic Effacement Cervic Station none Type Weight in lbs Pre/Post Dialysis Refused Weight 123.133368133297 BP Diastolic BP Location Tested BP Systolic BP Type 65 92 Fetus Heart Rate Present A 145 Fetus Movement A Yes Comments Doing well. Recheck TSH trice larson ANatomy US next visit. Flowsheet Date 05/14/2022 Pina Score Blood Edema Fundus Height Fundus Units Glucose Ketones Leukocytes Nitrite Labor Signs Protein Cervic Dilation Cervic Effacement Cervic Station Type Weight in lbs Pre/Post Dialysis Refused BP Diastolic BP Location Tested BP Systolic BP Type Fetus Heart Rate Present Fetus Movement Comments Flowsheet Date 05/14/2022 Pina Score Blood Edema Fundus Height Fundus Units Glucose Ketones Leukocytes Nitrite Labor Signs Protein Cervic Dilation Cervic Effacement Cervic Station neg none none trace Type Weight in lbs Pre/Post Dialysis Refused Weight 127.892400289261 BP Diastolic BP Location Tested BP Systolic BP Type 67 100 Fetus Heart Rate Present A 150 Fetus Movement A Yes Comments Doing very well except some left hip pain, will get support belt. US today anatomy complete and wnl. Flowsheet Date 06/11/2022 Pina Score Blood Edema Fundus Height Fundus Units Glucose Ketones Leukocytes Nitrite Labor Signs Protein Cervic Dilation Cervic Effacement Cervic Station none 24 Type Weight in lbs Pre/Post Dialysis Refused Weight 130.455280425953 BP Diastolic BP Location Tested BP Systolic BP Type 62 100 Fetus Heart Rate Present A 150 Fetus Movement A Yes Comments Doing well except a cold, di scussed OTCs. Asthma has been fine. GCT next, discussed. Flowsheet Date 07/03/2022 Pina Score Blood Edema Fundus Height Fundus Units Glucose Ketones Leukocytes Nitrite Labor Signs Protein Cervic Dilation Cervic Effacement Cervic Station neg trace 25 none trace Type Weight in lbs Pre/Post Dialysis Refused Weight 136.462549371833 BP Diastolic BP Location Tested BP Systolic BP Type 69 100 Fetus Heart Rate Present A 135 Fetus Movement A Yes Comments Doing fine. TSH and GCT toda y. RH pos. Discussed Tdap, will do. Will watch S<D. Flowsheet Date 07/17/2022 Pina Score Blood Edema Fundus Height Fundus Units Glucose Ketones Leukocytes Nitrite Labor Signs Protein Cervic Dilation Cervic Effacement Cervic Station neg none 28 none trace Type Weight in lbs Pre/Post Dialysis Refused Weight 136.885957358715 BP Diastolic BP Location Tested BP Systolic BP Type 71 101 Fetus Heart Rate Present A 135 Fetus Movement A Yes Comments Doing ok except very anxious , intrusive thoughts. denies SI/HI. would like to try zoloft, declines counseling for now. will start zoloft, discussed RBA. TSH wnl, 3hr GTT wnl. Tdap done. fundal height improved, will follow,. Flowsheet Date 07/31/2022 Pina Score Blood Edema Fundus Height Fundus Units Glucose Ketones Leukocytes Nitrite Labor Signs Protein Cervic Dilation Cervic Effacement Cervic Station neg trace 29 none trace Type Weight in lbs Pre/Post Dialysis Refused Weight 138.971341750752 BP Diastolic BP Location Tested BP Systolic BP Type 67 95 Fetus Heart Rate Present A 150 Fetus Movement A Yes Comments Doing fine. zoloft starting to help anxiety. Having second episode of hives, does not think they are insect bites, will contact PCP and use steroid cream she was given by ED. Flowsheet Date 08/14/2022 Pina Score Blood Edema Fundus Height Fundus Units Glucose Ketones Leukocytes Nitrite Labor Signs Protein Cervic Dilation Cervic Effacement Cervic Station neg trace 31 none trace Type Weight in lbs Pre/Post Dialysis Refused Weight 140.277312150883 BP Diastolic BP Location Tested BP Systolic BP Type 69 100 Fetus Heart Rate Present A 160 Fetus Movement A Yes Comments Doing well. Hives resolved. Will call for preregistrations. Will choose bone crusher. US next for S<D. GBS next, discussed. No labor sx. Flowsheet Date 08/28/2022 Pina Score Blood Edema Fundus Height Fundus Units Glucose Ketones Leukocytes Nitrite Labor Signs Protein Cervic Dilation Cervic Effacement Cervic Station Type Weight in lbs Pre/Post Dialysis Refused BP Diastolic BP Location Tested BP Systolic BP Type Fetus Heart Rate Present Fetus Movement Comments Flowsheet Date 08/28/2022 Pina Score Blood Edema Fundus Height Fundus Units Glucose Ketones Leukocytes Nitrite Labor Signs Protein Cervic Dilation Cervic Effacement Cervic Station neg trace none trace Type Weight in lbs Pre/Post Dialysis Refused Weight 143.711527035857 BP Diastolic BP Location Tested BP Systolic BP Type 81 120 Fetus Heart Rate Present A 135 Fetus Movement A Yes Comments Doing well. US today 34%, di scussed short long bones, likely constitutional. GBS done and discussed. FU weekly. Flowsheet Date 09/06/2022 Pina Score Blood Edema Fundus Height Fundus Units Glucose Ketones Leukocytes Nitrite Labor Signs Protein Cervic Dilation Cervic Effacement Cervic Station neg trace 35 none trace Type Weight in lbs Pre/Post Dialysis Refused Weight 144.162126237345 BP Diastolic BP Location Tested BP Systolic BP Type 77 107 Fetus Heart Rate Present A 150 Fetus Movement A Yes Comments Doing fine except GERD and t rouble sleeping, discussed OTCs. Also yeast infection, diflucan sent. GBS neg. WIll check cervix next week, pt asking re induction. Precautions given. Flowsheet Date 09/11/2022 Pina Score Blood Edema Fundus Height Fundus Units Glucose Ketones Leukocytes Nitrite Labor Signs Protein Cervic Dilation Cervic Effacement Cervic Station trace 36 1cm 30% -3 Type Weight in lbs Pre/Post Dialysis Refused Weight 145.9642444765 BP Diastolic BP Location Tested BP Systolic BP Type 64 101 Fetus Heart Rate Present A 145 Fetus Movement A Yes Comments Doing fine, would like induc tion. Cervix unfavorable, discussed IOL around BRIJESH, discussed RBA. WIll schedule. Precautions given. Menstrual History Last Menstrual Date Menses Monthly On Bcp Conception Prior Menses Frequency Hcg Plus Date Menarche Onset Age 1012/19/2021 Genetic Screening And Infection History Question Response Note Mental Retardation/Autism false Patient's Age Will Be 35 Years Or Older At Estim ated Date of Delivery false Thalassemia (Beninese, [place] Islander, Mediterranean, Or Background): MCV < 80 false Neural Tube Defect (Meningomyelocele, Spina Bifi da, Or Anencephaly) false Congenital Heart Defect false Down Syndrome false Charly-Sachs (eg, Hoahaoism, Cajun, [place]ian-[place]) f alse Ashley Disease false Sickle Cell Disease Or Trait () false Hemophilia Or Other Blood Disorders false Muscular Dystrophy false Cystic Fibrosis false Luda's Chorea false Intellectual Disability/Autism false If Yes, Was Person Tested For Fragile X? false Other Inherited Genetic Or Chromosomal Disorder false Maternal Metabolic Disorder (eg, Type 1 Diabetes , PKU) false Patient Or Baby's Father Had A Child With Defects Not Listed Above false Recurrent Loss, Or A Stillbirth false Medications (including Suppl ements, Vitamins, Herbs, OTC Drugs), Illicit/Recreational Drugs, Alcohol true If Yes, Agent(s) And Strength/Dosage false Any Other Genetic History false Live With Someone With TB Or Exposed To TB false Patient Or Partner Has History Of Genital Herpes false Rash Or Viral Illness Since Last Menstrual Perio d false History Of STD, Gonorrhea, Chlamydia, HPV, Syphi lis false Other Infection History false History of HIV false History of Hepatitis false Prior GBS-infected child false Hemoglobinopathy Or Carrier false Other Structural Defect false Recent Travel History Outside of Country false Delivery Information Delivery Date Delivery Type Labor Anesthesia Weeks Gestation Incision Type Labor Labor Length Hrs Delivered By Post Complications Tubal Sterilization Discharge Date Comments 3 Sepha[facility] idural 38.3 Karen Hendrix CNM anxiety, asthma Discharge Information Feeding Method Contraceptive Method Maternal HG B and HCT Levels
== END 2024-06-01 13:19 | disposition home or self-care (01) ==
PROVIDERS: Visit Provider Obstetrics & Gynecology
DX: N91.2 Amenorrhea, unspecified (principal)
CPT/HCPCS: 36415; 84702

== ENCOUNTER 2024-06-03 09:19 | Outpatient (CLI) | payer OTHER, SELFPAY ==
--- OUTSIDE RECORDS SUMMARY | 2024-06-03 09:42 | XMS_ITS | Data Portability ---
Author Organization [facility] Address [address] [place] [address] Care Team Providers Care Sealant Mixer Name Role Phone DAY TORRES Primary Care [...] Organization Details Last Modified Time Details Appointments FOLLOW UP 2024 10:15A Marie FAY MD Not available Not available Not available Lab None recorded. Referral None recorded. Procedures None recorded. Surgeries None recorded. Imaging None recorded. Medication Orders norethind ramon (contrace ptive) 0.35 mg tablet [address] [facility] [place], [address], 06/01/2024 12:56:36 norethind ramon (contrace ptive) 0.35 mg tablet [address] [facility] [address] [place], [address], 06/01/2024 12:56:36 Patient TargetsNo targets recorded. Patient [...] CT Rescr een: Malgorzata Cabrera Speci men: Scremary rojas Pap - Image d, Cervi x STATE MENT OF ADEQU ACY: Satis facto ry for evalu ation Trans forma tion zone compo nent absen t The absen ce of an endoc ervic al compo nent was confi rmed by an addit kary hernandez ner. FINAL DIAGN OSIS: Negat moris for Intra epith elial Lesio n or Yefri sanders (NIL) . Elect carlitamiranda kaiserhuang nilton d by Malgorzata Cabrera on 2023 [...] as clini nataly hilton nted. Not Available [facility] (Lab) [address], [place], [address], 03/21/2023 18:55:40 08/29/1908/28/2022 US, obste tric, follo w-up No observ ation record ed. [email or web address] [facility] [address], [place], [address], 10/10/2022 15:37:04 08/29/19 23 08/28/2022 US, obste tric, follo w-up No observ ation record ed. [email or web address] [facility] [address], [place], [address], 08/28/2022 13:49:42 Result Notes None recorded. Problems Name Problem SNOMED Code Status Onset Date Resolution Date Notes Provider Name and Address Organization Details Recorded Time 96515684 Completed 202209/26/2022 Britaney Corrie null, [facility] 3 13:34:22 Asthma in 49142337502 103 Completed Britaney Corrie [facility], [facility] 3 13:34:16 Asthma in 40839089404 103 Active Britaney Corrie null, [facility] 3 13:34:16 Anxiety in 52587860082 109 Active zoloft Marataney Corrie null, [facility] 3 13:34:16 Anxiety in 51739136171 109 Completed zoloft Britaney Corrie null, [facility] 3 13:34:16 Uterine size for dates discrepan cy 844594838 Active Britaney Corrie null, [facility] 3 13:34:16 Uterine size for dates discrepan cy 483275448 Completed Britaney Corrie null, [facility] 3 13:34:16 Problem Notes None recorded. Procedures Surgical History Date Name Laterality Status Provider Name and Address Organization Details Recorded Time 03/19/2023 Date of Last Pap Smear completed Jamaica Waters [facility] 06/01/2024 12:56:59 Imaging Results Imaging Date Name Status LastModified by Organiz ation Details LastModified Time 08/28/2022 US, obstetric, follow-up completed [email or web address] [facility] [address], [place], [address], 10/10/2022 15:37:04 08/28/2022 US, obstetric, follow-up completed [email or web address] [facility] [address], [place], [address], 08/28/2022 13:49:42 Procedure Notes None recorded. Medical Equipment None Reported. Allergies Allergen ID Allergen Name Allergen Category Reaction Reaction Severity Criticality Documentation Date Start Date Code Code System Note Provider Name and Address Organization Details Recorded Time 18071 doxycycli ne Not available rash Not available Not available 02/20/2022 3640 RxNorm Ericka dent, [facility] 12:53:16 Medications Name Sig Start Date Stop [...] Updated DateTime 09/11/2022 154.94 cm 27.4 kg/m2 47055.89 365 g 101 mm[Hg] 64 mm[Hg] [facility] 3 11:16:35 Date Recorded Body height Body mass index (BMI) Body weight Systolic blood pressure Diastolic blood pressure Provider Name and Address Organization Details Last Updated DateTime 10/14/2022 154.94 cm 24 kg/m2 78032.23 g 105 mm[Hg] 72 mm[Hg] [facility] 3 16:53:29 Date Recorded Body height Body mass index (BMI) Body weight Systolic blood pressure Diastolic blood pressure Provider Name and Address Organization Details Last Updated DateTime 03/19/2023 154.94 cm 25.9 kg/m2 60430.15 g 100 mm[Hg] 68 mm[Hg] Manda Mak [facility] 4 09:36:19 Date Recorded Body height Body mass index (BMI) Body weight Systolic blood pressure Diastolic blood pressure Provider Name and Address Organization Details Last Updated DateTime 06/01/2024 157.48 cm 25.2 kg/m2 46927.75 g 102 mm[Hg] 69 mm[Hg] Jamaica Waters [facility] 5 12:56:24 Social History Question Answer Notes LastModified by Organizat ion Details LastModified Time Tobacco Smoking Status Current Some Day Smoker Manda Mak [facility] 03/19/2023 09:37:30 What Is Your Level Of Alcohol Consumption? None [email or web address] Information not available 02/20/2022 If You Are , What Was Your Level Of Alcohol Consumption Prior To ? Occasional Information not available 03/19/2023 Are You Blind Or Do You Have Difficulty Seeing? No [email or web address] Information not available 02/20/2022 What Is Your Level Of Caffeine Consumption? None Information not available 03/19/2023 How Much Tobacco Do You Chew? None [email or web address] Information not available 02/20/2022 In The 14 Days Before Symptom Onset, Have You Had Close Contact With A Laboratory-confir med COVID-19 While That Case Was Ill? No [email or web address] Information not available 02/20/2022 In The 14 Days Before Symptom Onset, Have You Had Close Contact With A Person Who Is Under Investigation For COVID-19 While That Person Was Ill? No [email or web address] Information not available 02/20/2022 Have You Been To An Area Known To Be High Risk For COVID-19? No [email or web address] Information not available 02/20/2022 Are You Deaf Or Do You Have Serious Difficulty Hearing? No [email or web address] Information not available 02/20/2022 What Type Of Diet Are You Following? REGULAR [email or web address] Information not available 02/20/2022 What Is The Highest Grade Or Level Of School You Have Completed Or The Highest Degree You Have Received? [id number] Information not available 02/20/2022 What Is Your Occupation? Student Information not available 03/19/2023 Are There Any Guns Present In Your Home? No [email or web address] Information not available 02/20/2022 Do You Use Protection During Sex? Usually [email or web address] Information not available 02/20/2022 Do You Use Your Seat Belt Or Car Seat Routinely? Yes [email or web address] Information not available 02/20/2022 Do You Have Smoke And Carbon Monoxide Detectors In Your Home? No [email or web address] Information not available 02/20/2022 How Much Tobacco Do You Smoke? No [email or web address] Information not available 02/20/2022 Do You Feel Stressed (tense, Restless, Nervous, Or Anxious, Or Unable To Sleep At Night)? [id number] Information not available 03/19/2023 Do You Use Any Illicit Or Recreational Drugs? No [email or web address] Information not available 02/20/2022 Do You Use Sunscreen Routinely? No [email or web address] Information not available 02/20/2022 Has Tobacco Cessation Counseling Been Provided? No Information not available 03/19/2023 Have You Used IV Drugs? No [email or web address] Information not available 02/20/2022 Do You Or Have You Ever Used Any Other Forms Of Tobacco Or Nicotine? No Information not available 03/19/2023 Sex: Unknown Functional Status Question Answer Note LastModified by Organizat ion Details LastModified Time Do you have difficulty walking or climbing stairs? No Information not available 03/19/2023 Are you able to walk? YESWOREST [email or web address] Information not available 02/20/2022 Are you able to care for yourself? Yes Information not available 03/19/2023 Do you have difficulty dressing or bathing? No Information not available 03/19/2023 What is your exercise level? None [email or web address] Information not available 02/20/2022 Mental Status None recorded. Family History Relationship Description Onset Age of this Age Resolved Age Notes LastModified by Organization Details LastModified Time Unspecified Relation Family history unknown [email or web address] Not available 02/20 12:40:01 Maternal Aunt Malignant tumor of breast [email or web address] Not available 02/20 12:52:22 Father Diabetes mellitus [email or web address] Not available 02/20 12:52:32 Medical History Condition Response Allergies (Food, seasonal, environmental ) N Other N Blood Transfusion N Drug/Latex Allergies/Reactions Y Breast Cancer N Dermatologic Disorders N Lung Disease N Defects or Inherited Disease N Breast Problem N Gestational Diabetes N Hematologic disorders N Anesthesia Complications N History of STI N Deep Vein Thrombosis N Polycystic ovary syndrome N Anxiety Disorder N Autoimmune disease N Arthritis N Infertility N Polyps N Acid Reflux (GERD) N History of abnormal pap N Cancer N Stroke N Varicosities N Neurologic/Epilepsy N Endometriosis N High Cholesterol N Headaches N Fibromyalgia N Kidney Disease N Heart Problems N Kidney or Bladder Problems N Thyroid Problems N GI Problems N Eating Disorder [...] SNOMED-CT Code Diagnosis ICD10 Code Diagnosis Note [id number] Sheridan Alvarez [facility] [address] [address] 02/20/2022 11:43:39 02/20/2022 12:41:43 Uncertain viability of 735650005 O36.80X0 Z3A.08 [id number] [facility] [address],[place] [address] 02/20/2022 11:45:10 02/20/2022 13:12:58 test positive 505655071 Z32.01 Gynecologi c examination 12458321 Z01.419 Amenorrhea 29714983 N91. 2 Nausea 722931218 R11.0 [id number] Amita Torres [facility] [address] [place] [address] 03/19/2022 11:04:40 03/19/2022 15:23:35 [id number] Day Torres MD [facility] [address] [place] [address] 03/19/2022 11:06:38 03/19/2022 12:24:31 Routine care 742884536 Z34.91 Asthma in 7230 205782 3037 J45.909 [id number] Day Torres MD [facility] [address] [address] 04/19/2022 11:09:42 04/22/2022 16:20:41 Routine care 345707365 Z34.91 [id number] Amita Torres [facility] [address] [address] 05/14/2022 11:00:14 05/14/2022 12:33:13 screening for malformation 686104844 Z36.3 [id number] Day Torres MD [facility] [address] [address] 05/14/2022 11:02:28 05/14/2022 14:50:13 Routine care 063884033 Z34.91 [id number] MD Zoila Yanez [address] [address] 06/11/2022 12:16:18 06/11/2022 12:41:49 Routine care 473949193 Z34.91 [id number] Day Torres MD [facility] [address] [address] 07/03/2022 11:00:18 07/08/2022 15:09:01 Routine care 420828436 Z34.91 [id number] MD Zoila Yanez [address] [address] 07/17/2022 11:02:50 07/17/2022 12:25:27 Routine care 747387394 Z34.91 Anxiety in 148 5362631 9109 F41.9 [id number] MD Zoila Yanez [address] [address] 07/31/2022 11:13:09 07/31/2022 13:57:06 Routine care 629649103 Z34.91 Anxiety in 740 1681136 9109 F41.9 [id number] MD Zoila Yanez [address] [address] 08/14/2022 12:40:17 08/14/2022 13:10:12 Uterine size for dates discrepancy 408451200 O26.849 Routine an tenatal care 830831549 Z34.91 [id number] Sheridan Alvarez [facility] [address] [address] 08/28/2022 09:56:00 08/28/2022 13:53:09 Uterine size for dates discrepancy 072473118 O26.843 Z3A.36 [id number] Day Torres MD [facility] [address] [address] 08/28/2022 09:59:23 09/05/2022 15:22:16 Routine care 422121302 Z34.91 [id number] Day Torres MD [facility] [address] [address] 09/06/2022 14:29:08 09/09/2022 14:35:04 Routine care 274758706 Z34.91 Candidal vulvovaginitis 53129188 B37.31 [id number] Day Torres MD [facility] [address] [address] 09/11/2022 11:12:05 09/11/2022 14:38:01 Routine care 605686674 Z34.91 [id number] Day Torres MD [facility] [address] [address] 10/14/2022 16:37:15 10/15/2022 10:36:52 care 140253660 Z39.2 Initial pr escription of oral contraception 881456557 Z30.011 [id number] Karen Gallegos CNM [facility] [address] [address] 03/19/2023 09:22:03 03/19/2023 10:12:05 Gynecologic examination 52123760 Z11.3 [id number] Clemente Fay MD [facility] [address] [address] 06/01/2024 12:10:52 06/01/2024 13:35:57 of unknown location 0139354782 31691 O26.91 this patient is a 28-year-ol d [...] Weber Member ID Guarantor Name 09/11/2022 1 [facility] [id number] [facility] [id number] [facility] 09/11/2022 2 [place] [facility] EM[facility] DEPARTMENT OF PUBLIC [facility] Alfia Maha [id number] [facility] 10/14/2022 1 [facility] [id number] Alfia Maha [id number] Alfia [facility] 10/14/2022 2 [place] [facility] EM[facility] DEPARTMENT OF PUBLIC AID Alfia Maha [id number] Al[facility]ia [facility] 03/19/2023 1 [facility] [id number] Alfia Maha [id number] Alfia Maha 03/19/2023 2 [place] [facility] EMERGENCY DEPARTMENT OF [facility] Alfia Maha [id number] Alfia [facility] 06/01/2024 1 [facility] [id number] [facility] Notes Date Note Type Note Provider Name and Address Organization Details Recorded Time 10/14/2022 text/html Patient is a 27yo presenting for a 4 week visit. She had a on 09/14 at term weeks [place]. Baby Ayzal was 6-15, doing well. Doing well overall. breast and bottlefeeding. Normal lochia. Pain- minimal. Bowel and bladder function normal. Cameron score 8 Period-none Annual due: january Concerns: none Day Torres MD [address], [place], [address], [facility] 10/15/2022 10:07:40 03/19/2023 text/html Annual GYNReport [...] core Karen Gallegos CNM [address], [place], [address], [facility] 03/19/2023 10:01:44 06/01/2024 text/html this patient [...] total. Clemente Fay MD [address], [place], [address], [facility] 06/01/2024 13:35:25 OBGyn Episode Ob Episode Information Episode Created Date Number of Fetuses Patient Bloodtype Patient rh Status Prepregnancy Weight lbs Domestic Partner Domestic Partner Phone Father Name Senior Actuarial Analyst Status 03/19/19 23 1 B Positive 120 CLOSED Fetus Data First Name Last Name Admitted to NICU Weight (g) Sex Living Outcome Pediatric Complications Fetus ID Race Codes Race Delivery Type 3146.79 45 M true Full Term [email or web address] [id number] Vaginal Delivery Problems Problem Notes Torres pt2/26 TSH WNL Problem Name Start Date End Date Resolution Snomed Code Not e Uterine size for dates discrepancy 937864474 Asthma in 6169010089 9103 Anxiety in 851844521 34217 zoloft Brijesh Calculation Initial Brijesh Date Initial [...] Date Ultra Sound Latest Days Gestation 0 [email or web address] 03/19/2022 09/26/19 23 0 Pre- Flowsheet Flowsheet Date 03/19/2022 Pina Score Blood [...] Weight in lbs Pre/Post Dialysis Refused Weight 117.546365121686 BP Diastolic BP Location Tested BP Systolic [...] Weight in lbs Pre/Post Dialysis Refused Weight 123.277497490212 BP Diastolic BP Location Tested BP Systolic [...] Weight in lbs Pre/Post Dialysis Refused Weight 127.859549409904 BP Diastolic BP Location Tested BP Systolic [...] Weight in lbs Pre/Post Dialysis Refused Weight 130.449837725838 BP Diastolic BP Location Tested BP Systolic [...] Weight in lbs Pre/Post Dialysis Refused Weight 136.641425084140 BP Diastolic BP Location Tested BP Systolic [...] Weight in lbs Pre/Post Dialysis Refused Weight 136.110097711651 BP Diastolic BP Location Tested BP Systolic [...] Weight in lbs Pre/Post Dialysis Refused Weight 138.344498861315 BP Diastolic BP Location Tested BP Systolic [...] Weight in lbs Pre/Post Dialysis Refused Weight 140.382526333187 BP Diastolic BP Location Tested BP Systolic BP Type 69 100 Fetus Heart Rate Present A 160 Fetus Movement A Yes Comments Doing well. Hives resolved. Will call for preregistrations. Will choose poultry trimmer. US next for S<D. GBS next, discussed. [...] Weight in lbs Pre/Post Dialysis Refused Weight 143.520571412114 BP Diastolic BP Location Tested BP Systolic [...] Weight in lbs Pre/Post Dialysis Refused Weight 144.996698154426 BP Diastolic BP Location Tested BP Systolic [...] Weight in lbs Pre/Post Dialysis Refused Weight 145.4731879951 BP Diastolic BP Location Tested BP Systolic [...] Estim ated Date of Delivery false Thalassemia (American, Norwegian, Mediterranean, Or Background): MCV < 80 false Neural Tube Defect (Meningomyelocele, Spina Bifi da, Or Anencephaly) false Congenital Heart Defect false Down Syndrome false Charyl-Sachs (eg, Protestant, Cajun, Nepalese-Tuvaluan) f alse Ashley Disease false Sickle Cell Disease Or Trait () false Hemophilia Or Other Blood Disorders false Muscular Dystrophy false Cystic Fibrosis false [place]'s Chorea false Intellectual Disability/Autism false If Yes, [...] Complications Tubal Sterilization Discharge Date Comments 3 [facility] idural 38.3 Karen Hendrix CNM anxiety, asthma Discharge Information Feeding Method Contraceptive Method Maternal HG B and HCT Levels
[2024-06-03 12:24] LABS: Beta HCG Quantitative < 2.39 mIU/ML
== END 2024-06-03 09:20 | disposition home or self-care (01) ==
LOC: ANHLAB 09:22
PROVIDERS: Visit Provider Obstetrics & Gynecology
DX: N91.2 Amenorrhea, unspecified (principal)
CPT/HCPCS: 36415; 84702

== ENCOUNTER 2024-09-03 16:20 | Emergency (ER) | payer OTHER, SELFPAY ==
--- OUTSIDE RECORDS SUMMARY | 2024-09-03 16:22 | XMS_ITS | Data Portability ---
Author Organization [facility] [place], [facility]yl[facility] [place] Address [address] [place] [address] Care Team Providers Care Operations Dispatcher Name Role Phone DAY TORRES Primary Care Provider Assessment Encounter Date Assessment Date Assessment LastModified by Organization Details LastModified Time 06/04/2024 06/04/2024 33 [email or web address] Not available 05/25 12:01:56 Plan of Treatment Reminders Order Date Submit Date Provider Last Modified By Organization Details Last Modified Time Details Appointments None recorded. Lab unlisted lab - 17-oh progesteron e, lc/MS/MS 2024 025 [facility] (Lab), [address], [place], [address], 5 20:48:33 dhea-sulfat e, serum 2024 025 [facility] (Lab), [address] [place], [address], 5 20:48:30 hormone panel, serum or plasma 2024 025 [facility] (Lab), [address] [place], [address], 5 20:48:31 HbA1c (hemoglobin A1c), blood 2024 025 [facility] (Lab), [address] [place], [address], 5 20:48:32 progesteron e, serum 2024 025 [facility] (Lab), [address] , [place], [address], 5 20:48:31 prolactin, serum 2024 [facility] (Lab), [address], [place], [address], 5 20:48:31 shbg (sex hormone-bin ding globulin), serum 2024 025 [facility] (Lab), [address], [place], [address], 5 20:48:32 testosteron e free/testos terone total, ratio, serum 2024 [facility] (Lab), [address], [place], [address], 5 20:48:33 TSH, serum or plasma 2024 [facility] (Lab), [address], [place], [address], 5 20:48:32 test, urine 2024 [email or web address] [place], [address], [address], [place], [address], 11:58:44 Referral None recorded. Procedures None recorded. Surgeries None recorded. Imaging US, transvagina l 2024 [email or web address] [place], [address], [address], [place], [address], 22:22:36 US, pelvis, complete 2024 [email or web address] [place], [address], [address], [place], [address], 11:11:37 Medication Orders estradiol 2 mg tablet 2024 025 [facility] [place], [address], 5 12:03:15 progesteron e micronized 100 mg capsule 2024 025 [facility] [address] [place], [address], 5 12:03:16 Patient TargetsNo targets recorded. Patient InstructionsNo instructions recorded. Reason for Referral None Reported. Results Created Date Observation Date Name Description Value Unit Range Abnormal Flag Note LastModifiedBy Organization Detail LastModifiedTime 06/05/1906/04/2024 DHEA SULFA TE DHEA-sulfate 293 ug/dL Femal e Range s Age(y ) Range (ug/d L) 10-15 34-28 0 15-20 65-36 8 20-25 148-4 07 25-35 99-34 0 35-45 61-33 7 45-55 35-25 6 55-65 19-20 5 65-75 9-246 > 75 12-15 4 Not Available [facility] (Lab) [address], [place], [address], 06/19/2024 20:48:30 06/05/1906/04/2024 PROGE STERO NE progesterone 0.23 NG/mL This assay was perfo rmed using [employer] ratio n reage nts and test kits. Value s obtai guille with other assay metho ds or kits canno t be used inter romano eably . Femal e Proge stero ne Range s: Folli cular phase 0.06- 0.89 ng/mL Ovula tion phase 0.12- 12.00 ng/mL Lutea l phase 1.83- 23.90 ng/mL Postm enopa usal <0.05 -0.13 ng/mL Healt hy Pregn ant Women 1st Trime ster 11.0- 44.30 2nd Trime ster 25.40 -83.3 0 3rd Trime ster 58.70 -214. 00 Not Available [facility] (Lab) [address] [place], [address], 06/19/2024 20:48:31 06/05/19 25 06/04/2024 PROLA CTIN prolactin, total 9.64 NG/mL 4.79-2 3.30 This assay was perfo rmed using [employer] reage nts and test kits. Value s obtai guille with other assay metho ds or kits canno t be used [facility] . Not Available [facility] (Lab) [address] [place], [address], 06/19/2024 20:48:31 06/05/19 25 06/04/2024 FSH, LH, ESTRA DIOL estradiol 9.5 pg/mL This assay was perfo rmed using [employer] reage nts and test kits. Value s obtai guille with other assay metho ds or kits canno t be used [facility] . Femal e Estra diol Range s: Folli cular phase 12.4- 233 pg/mL Ovula tion phase 41.0- 398 pg/mL Lutea l phase 22.3- 341 pg/mL Postm enopa usal <5-13 8 pg/mL Healt hy Pregn ant Women 1st Trime ster 154-3 243 pg/mL 2nd Trime ster 1561- 65138 pg/mL 3rd Trime ster 8525- >3000 0 pg/mL Not Available [facility] (Lab) [address], [place], [address], 06/19/2024 20:48:31 06/05/19 25 06/04/2024 FSH, LH, ESTRA DIOL FSH 91.3 mIU/m L This assay was perfo rmed using [employer] reage nts and test kits. Value s obtai guille with other assay metho ds or kits canno t be used [facility] . Femal es Folli cular : 3.5-1 2.5 mIU/m L Ovula tion: 4.7-2 1.5 mIU/m L Lutea l: 1.7-7 .7 mIU/m L Postm enopa use: 25.8- 134.8 mIU/m L Not Available [facility] (Lab) [address], [place], [address], 06/19/2024 20:48:31 06/05/19 25 06/04/2024 FSH, LH, ESTRA DIOL LH 66.8 mIU/m L This assay was perfo rmed using [employer] reage nts and test kits. Value s obtai guille with other assay metho ds or kits canno t be used inter romano eably . Femal es Mid-F ollic ular: 2.4-1 2.6 mIU/m L Mid-C ycle: 14.0- 95.6 mIU/m L Mid-L uteal : 1.0-1 1.4 mIU/m L Postm enopa use: 7.7-5 8.5 mIU/m L Not Available [facility] (Lab) [address], [place], [address], 06/19/2024 20:48:31 06/05/19 25 06/04/2024 TSH, REFLE X FREE T4 TSH 5.21 uIU/m L 0.30-5 .33 Not Available [facility] (Lab) [address] , [place], [address], 06/19/2024 20:48:32 06/05/19 25 06/04/2024 HEMOG LOBIN A1C hemoglobin A1C 5.5 % 4.0-5. 6 The Ameri can Diabe devyn Assoc iatio n recom mends that a prima ry goal of thera py noraul d be a HBA1C of < 7% and that physi cians shoul d reeva luate the treat ment regim en in patie nts with HBA1C value s consi stent ly > 8%. <5.7% Nyla l 5.7 - 6.4% Incre ased risk for diabe devyn >=6.5 % Diagn ostic of diabe devyn <7.0% Goal of thera py >8.0% Josie todd Not Available [facility] (Lab) [address], [place], [address], 06/19/2024 20:48:32 06/05/19 25 06/04/2024 HUMAN SEX HORMO NE YAYO NG GLOBU PATTI sex hormone binding globulin 12.6 nmole s/L 18.2-1 35.5 low Not Available [facility] (Lab) [address], [place], [address], 06/19/2024 20:48:32 06/05/19 25 06/04/2024 TESTO STERO NE, FREE( DIALY SIS) AND TOTAL (LC/M S/MS) testosterone , total 12 NG/dL 2-45 For addit ional infor anthony rowan e refer to http: //cameron castque stdia gnost ics.c om/fa q/ Total Testo stero neLCM SMSFA Q165 (This link is being provi ded for infor wilton fleming/ educa georges l purpo ses only. ) This test was devel oped and its kurtis tical perfo rmanc e ilana cteri stics have been deter mined by [facility] Aaron rico [facility] [place], [place]. It has not been clear ed or appro anali by the U.S. Food and Drug Admin istra tion. This assay has been valid ated pursu ant to the CLIA regul ation s and is used for clini danni purpo ses. Not Available [facility] (Lab) [address], [place], [address], 06/19/2024 20:48:33 06/05/19 25 06/04/2024 TESTO STERO NE, FREE( DIALY SIS) AND TOTAL (LC/M S/MS) testosterone , free 2.4 pg/mL 0.1-6. 4 This test was devel oped and its kurtis tical perfo rmanc e ilana cteri stics have been deter mined by [facility] Aaron trisha [place], [place]. It has not been clear ed or appro anali by the U.S. Food and Drug Admin istra tion. This assay has been valid ated pursu ant to the CLIA regul ation s and is used for clini danni purpo ses. Perfo rming Organ izati on [facility]: Site ID: [id number] Name: [facility] Aaron [facility] Addre ss: [id number] [place], [place] Direc tor: Elsie Booth MD PhD Not Available [facility] (Lab) [address], [place], [address], 06/19/2024 20:48:33 06/05/19 25 06/04/2024 17-OH PROGE STERO NE 17-hydroxypr ogesterone, lc/MS/MS 17 NG/dL Adult Femal e Refer ence Range s for 17-Hy droxy proge stero ne: Pre-M enopa usal Mid Folli cular : 23-10 2 ng/dL Pre-M enopa usal Surge : 67-34 9 ng/dL Pre-M enopa usal Mid Lutea l: 139-4 31 ng/dL Postm enopa usal Phase : < or = 45 ng/dL Pregn jacob: First Trime ster: 78-45 7 ng/dL Secon d Trime ster: 90-35 7 ng/dL Third Trime ster: 144-5 78 ng/dL This test was devel oped and its kurtis tical perfo rmanc e ilana cteri stics have been deter mined by [facility]. It has not been clear ed or appro anali by the FDA. This assay has been valid ated pursu ant to the CLIA regul ation s and is used for clini danni purpo ses. Perfo rming Organ izati on Infor matio n: Site ID: [id number] Name: [facility]/Jonathon guzman C-S an Kevin michele , Addre ss: [id number] [facility] [place] [address] Direc tor: Kisha arguello MD,Ph D,NASRIN Not Available [facility] (Lab) [address], [place], [address], 06/19/2024 20:48:33 06/05/19 25 06/04/2024 pregn jacob test, urine HCG negati ve Not Available [place] [address], [place], [address], 06/04/2024 11:11:08 06/09/19 25 06/08/2024 US, trans vagin al No observ ation record ed. [email or web address] [place] [address], [place], [address], 06/08/2024 10:31:40 06/09/19 25 06/08/2024 US, trans vagin al No observ ation record ed. [email or web address] [address], [place], [address], 06/08/2024 23:06:23 Result Notes None recorded. Problems Name Problem SNOMED Code Status Onset Date Resolution Date Notes Provider Name and Address Organization Details Recorded Time 86389025 Completed 202209/26/2022 Ruddy [facility], [facility] 3 13:34:22 Asthma in [id number] 103 Completed [facility], [facility] 3 13:34:16 Asthma in 91920457234 103 Active [facility]dy [facility], [facility] 3 13:34:16 Anxiety in 73892327659 109 Active zoloft Ruddy [facility], [facility] 3 13:34:16 Anxiety in 97797108497 109 Completed zoloft [facility]dy [facility], [facility] 3 13:34:16 Uterine size for dates van cy 646466790 Active Ruddy Denton [facility] 3 13:34:16 Uterine size for dates van cy 459295411 Completed [facility], [facility] 3 13:34:16 Problem Notes None recorded. Procedures Surgical History Date Name Laterality Status Provider Name and Address Organization Details Recorded Time 03/19/2023 Date of Last Pap Smear completed Jamaica Waters [facility] 06/01/2024 12:56:59 Imaging Results None recorded. Procedure Notes None recorded. Medical Equipment None Reported. Allergies Allergen ID Allergen Name Allergen Category Reaction Reaction Severity Criticality Documentation Date Start Date Code Code System Note Provider Name and Address Organization Details Recorded Time 31690 doxycycli ne Not available rash Not available Not available 02/20/2022 3640 RxNorm Ericka Waters [facility] 2 12:53:16 Medications Name Sig Start [...] completed Not Available Not Available Not Available estradiol 2 mg tablet TAKE 1 TABLET BY MOUTH ONCE DAILY active Not Available Not Available No t Available albuterol sulfate HFA 90 mcg/actuati on aerosol inhaler Inhale 2 puffs every 4 hours by inhalatio n route as needed. 10/14 completed Not Available Not Available Not Available norethindro ne (contracept moris) 0.35 mg tablet TAKE 1 TABLET BY MOUTH ONCE DAILY active Not Available Not Available No t Available sertraline 50 mg tablet Take 1 tablet every day by oral route. 10/14 completed Not Available Not Available Not Available metoclopram jenna 10 mg tablet Take 1 tablet 4 times a day by oral route. 10/14 completed Not Available Not Available Not Available progesteron e micronized 100 mg capsule TAKE 1 CAPSULE BY MOUTH ONCE DAILY active Not Available Not Available No t Available 06/01 completed Not Available Not Available Not Available Vitals Date Recorded Body height Body mass index (BMI) Body weight Systolic And Diastolic Provider Name and Address Organization Details Last Updated DateTime 06/01/2024 157.48 cm 25.2 kg/m2 09702.75 g 102/69 mm[Hg] [facility] 06/01/2024 12:56:24 Date Recorded Body height Body mass index (BMI) Body weight Systolic And Diastolic Provider Name and Address Organization Details Last Updated DateTime 06/04/2024 157.48 cm 25.1 kg/m2 56808.15 g 109/78 mm[Hg] [facility] 06/04/2024 11:07:00 Date Recorded Body height Body mass index (BMI) Body weight Systolic And Diastolic Provider Name and Address Organization Details Last Updated DateTime 06/19/2024 157.48 cm 24.9 kg/m2 69382.56 g 95/66 mm[Hg] [facility] 06/19/2024 11:16:12 Social History Question Answer Notes LastModified by Organizat ion Details LastModified Time Tobacco Smoking Status Current Some Day Sm[facility] 03/19/2023 09:37:30 If You Are , What Was Your Level Of Alcohol Consumption Prior To ? Occasional Information not available 03/19/2023 Are You Blind Or Do You Have Difficulty Seeing? No Information not available 02/20/2022 What Is Your Level Of Caffeine Consumption? None Information not available 03/19/2023 How Much Tobacco Do You Chew? None [email or web address] Information not available 02/20/2022 In The 14 Days Before Symptom Onset, Have You Had Close Contact [facility] While That Case Was Ill? No [email or web address] Information not available 02/20/2022 In The 14 Days Before Symptom Onset, Have You Had Close Contact With A Person Who Is Under Investigation For COVID-19 While That Person Was Ill? No [email or web address] Information not available 02/20/2022 Have You Been To An Area Known To Be High Risk For COVID-19? No [email or web address] Information not available 02/20/2022 Are You Deaf Or Do You Have Serious Difficulty Hearing? No [email or web address] Information not available 02/20/2022 What Type Of Diet Are You Following? REGULAR [email or web address] Information not available 02/20/2022 What Is The Highest Grade Or Level Of School You Have Completed Or The Highest Degree You Have Received? [id number] [email or web address] Information not available 02/20/2022 Are There Any Guns Present In Your Home? No [email or web address] Information not available 02/20/2022 Do You Use Protection During Sex? Usually [email or web address] Information not available 02/20/2022 Do You Use Your Seat Belt Or Car Seat Routinely? Yes [email or web address] Information not available 02/20/2022 Do You Have Smoke And Carbon Monoxide Detectors In Your Home? No [email or web address] Information not available 02/20/2022 How Much Tobacco Do You Smoke? No [email or web address] Information not available 02/20/2022 Do You Use Sunscreen Routinely? No [email or web address] Information not available 02/20/2022 Has Tobacco Cessation Counseling Been Provided? No Information not available 03/19/2023 Have You Used IV Drugs? No [email or web address] Information not available 02/20/2022 Do You Have Difficulty Walking Or Climbing Stairs? No Information not available 03/19/2023 Sex: Unknown Functional Status Question Answer Note LastModified by Organizat ion Details LastModified Time Do you use any illicit or recreational drugs? No [email or web address] Information not available 02/20/2022 Do you or have you ever used any other forms of tobacco or nicotine? No Information not available 03/19/2023 What is your level of alcohol consumption? None [email or web address] Information not available 02/20/2022 Are you able to walk? YESWOREST [email or web address] Information not available 02/20/2022 Are you able to care for yourself? Yes Information n ot available 03/19/2023 What is your occupation? student Information not available 03/19/2023 Do you have difficulty dressing or bathing? No Information not available 03/19/2023 What is your exercise level? None [email or web address] Information not available 02/20/2022 Mental Status Question Answer Note LastModified by Organization D etails LastModified Time Do you feel stressed (tense, restless, nervous, or anxious, or unable to sleep at night)? [id number] Information not available 03/19/2023 Family History Relationship Description Onset Age of this Age Resolved Age Notes LastModified by Organization Details LastModified Time Unspecified Relation Family history unknown Not available 2024 11:07:47 Maternal Aunt Malignant tumor of breast [email or web address] Not available 02/20 12:52:22 Father Diabetes mellitus [email or web address] Not available 02/20 12:52:32 Medical History Condition [...] of Flow (days) 4 Current Control Method BCPs Are cycles usually normal N Sexually Active? [...] SNOMED-CT Code Diagnosis ICD10 Code Diagnosis Note [id number] Clemente Fay MD [place] [address],[place] [address] 02/20/2022 11:43:39 02/20/2022 12:41:43 Uncertain viability of 430865752 O36.80X0 Z3A.08 [id number] Karen Gallegos [facility] [address],[place] [address] 02/20/2022 11:45:10 02/20/2022 13:12:58 test positive 797736003 Z32.01 Gynecologi c examination 72999311 Z01.419 Amenorrhea 81184455 N91. 2 Nausea 885781950 R11.0 [id number] Day Torres MD [place] [address] [place] [address] 03/19/2022 11:04:40 03/19/2022 15:23:35 [id number] MD Jany [place] [address] [place] [address] 03/19/2022 11:06:38 03/19/2022 12:24:31 Routine care 923231722 Z34.91 Asthma in 7230 347770 9527 J45.909 [id number] Day Torres MD [place] [address] [place] [address] 04/19/2022 11:09:42 04/22/2022 16:20:41 Routine care 575535542 Z34.91 [id number] MD Zoila Y[place] [address] [place] [address] 05/14/2022 11:00:14 05/14/2022 12:33:13 screening for malformation 078451315 Z36.3 [id number] MD Zoila Yanez [address],[place] [address] 05/14/2022 11:02:28 05/14/2022 14:50:13 Routine care 400711598 Z34.91 [id number] MD Zoila Yane[facility] [address],[place] [address] 06/11/2022 12:16:18 06/11/2022 12:41:49 Routine care 574273855 Z34.91 [id number] MD Jany [place] [address],[place] [address] 07/03/2022 11:00:18 07/08/2022 15:09:01 Routine care 711325822 Z34.91 [id number] Day Torres MD [place] [address],[place] [address] 07/17/2022 11:02:50 07/17/2022 12:25:27 Routine care 561125097 Z34.91 Anxiety in 259 2039371 9109 F41.9 [id number] MD Zoila Yanez [address],[place] [address] 07/31/2022 11:13:09 07/31/2022 13:57:06 Routine care 904926267 Z34.91 Anxiety in 094 8197211 9109 F41.9 [id number] MD Zoila Yanez [address],[place] [address] 08/14/2022 12:40:17 08/14/2022 13:10:12 Uterine size for dates discrepancy 177514483 O26.849 Routine an tenatal care 334314196 Z34.91 [id number] MD Zoila Yanez [address],[place] [address] 08/28/2022 09:56:00 08/28/2022 13:53:09 Uterine size for dates discrepancy 721541699 O26.843 Z3A.36 [id number] Day Torres MD [place] [address],[place] [address] 08/28/2022 09:59:23 09/05/2022 15:22:16 Routine care 696615221 Z34.91 [id number] Day Torres MD [place] [address],[place] [address] 09/06/2022 14:29:08 09/09/2022 14:35:04 Routine care 706416202 Z34.91 Candidal vulvovaginitis 20845942 B37.31 [id number] Day Torres MD [place] [address],[place] [address] 09/11/2022 11:12:05 09/11/2022 14:38:01 Routine care 495628832 Z34.91 [id number] Day Torres MD [place] [address],[place] [address] 10/14/2022 16:37:15 10/15/2022 10:36:52 care 575063400 Z39.2 Initial pr escription of oral contraception 826128317 Z30.011 [id number] [facility] [address],[place] [address] 03/19/2023 09:22:03 03/19/2023 10:12:05 Gynecologic examination 05492937 Z11.3 [id number] Clemente Fay MD [place] [address],[place] [address] 06/01/2024 12:10:52 06/01/2024 13:35:57 of unknown location 0935927086 18646 O26.91 this patient is a 28-year-ol d female presents for ultrasound follow-up. Her ultrasound does not show an intrauteri ne or ectopic . This is a of unknown location. We will perform serial HCGs. She will return in 3 days. We will possibly repeat ultrasound at that time. We spent more than 20 minutes on her care in total. [id number] Clemente Fay MD [place] [address] [address] 06/04/2024 10:54:06 06/04/2024 12:19:43 Abnormal uterine bleeding 3195452257 9100 N93.9 Amenorrhea 95669866 N91. 2 is a 28-year-ol d female presents for amenorrhea . She has had 3 months of no vaginal bleeding. Has a history of regular periods. We discussed amenorrhea . We will perform laboratory evaluation and pelvic ultrasound . She will return. We will discuss treatment options and the results of the evaluation . Spent 20 minutes on her care in total. [id number] Clemente Fay MD [place] [address],[place] [address] 06/08/2024 09:26:45 06/08/2024 10:10:21 Amenorrhea 56472961 N91.2 is a 28-year-ol d female presents for amenorrhea . She has had 3 months of no vaginal bleeding. Has a history of regular periods. We discussed amenorrhea . We will perform laboratory evaluation and pelvic ultrasound . She will return. We will discuss treatment options and the results of the evaluation . Spent 20 minutes on her care in total. [id number] Clemente Fay MD [place] [address],[place] [address] 06/19/2024 11:06:36 06/19/2024 12:20:27 Ovarian failure 216433351 E28.39 28-year-ol d female who presents for follow-up on ultrasound and laboratory evaluation . Her ultrasound was normal. We reviewed her ultrasound labs. Her FSH, LH and estradiol are striking. 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 today she confirms hot flashes and night sweats when asked. We agreed to treat her symptoms until she can be seen by cate truong endocrinol oghuang. I spent Over 20 minutes on the patient's care in total. we discussed the etiology, natural history, treatment of premature ovarian failure. To refer to Cate truong Endocrinol oghuang. Health Concerns Section Related Observation LastModified by Organization Detai ls LastModified Time None Recorded Concern Status LastModified by Organization Details LastModified Time None Recorded Advance Directives Directive None Recorded Payers Insurance Date Sequence Insurance Name Policy Number Policy Weber Covered Member ID Weber Member ID Guarantor Name 06/04/2024 1 [facility] Bright Lopez [id number] Benjamin Lopez 06/04/2024 2 [facility] Benjamin Lopez [id number] Benjamin Lopez 06/17/2024 1 [place] [facility] [id number] Benjamin Lpoez [id number] Benjamin Lopez 06/04/2024 2 [place] [facility] Benjamin Lopez [id number] Benjamin Lopez 06/04/2024 2 [place] Benjamin Lopez [id number] Benjamin Lopez 06/04/2024 2 [employer] [place] ON [place] AFTER 2020 (MEDICAID REPLACEMENT - HMO) Benjamin Lopez [id number] Benjamin Lopez 06/04/2024 2 [facility] [id number] Benjamin Lopez [id number] Benjamin Lopez 06/04/2024 2 [place] [facility] Benjamin Lopez [id number] Benjamin Lopez 06/19/2024 2 [place] [facility] Benjamin Lopez [id number] Benjamin Lopez Notes Date Note Type Note Provider Name and Address Organization Details Recorded Time 06/01/2024 text/html this patient is a 28-year-old [...] total. Clemente Fay MD [address], [place], [address], [facility] 06/01/2024 13:35:25 06/04/2024 text/html is a 28-year-old female presents for amenorrhea. She has had 3 months of no vaginal bleeding. Has a history of regular periods. We discussed amenorrhea. We will perform laboratory evaluation and pelvic ultrasound. She will return. We will discuss treatment options and the results of the evaluation. Spent 20 minutes on her care in total. Clemente Fay MD [address], [place], [address], [facility] 06/04/2024 12:08:25 06/19/2024 text/html 28-year-old mel mcfarland who presents for follow-up on ultrasound and laboratory evaluation. Her ultrasound was normal. We reviewed her ultrasound labs. Her FSH, LH and estradiol are striking. 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 today she confirms hot flashes and night sweats when asked. We agreed to treat her symptoms until she can be seen by reproductive endocrinology. I spent Over 20 minutes on the patient's care in total. Clemente Fay MD [address], [place], [address], [facility] 06/19/2024 12:14:28 OBGyn Episode Ob Episode Information Episode Created Date Number of Fetuses Patient Bloodtype Patient rh Status Prepregnancy Weight lbs Domestic Partner Domestic Partner Phone Father Name Baby Nurse Status 03/19/19 23 1 B Positive 120 CLOSED Fetus Data First Name Last Name Admitted to NICU Weight (g) Sex Living Outcome Pediatric Complications Fetus ID Race Codes Race Delivery Type 3146.79 45 M true Full Term [id number] Vaginal Delivery Problems Problem Notes Torres pt2/26 TSH WNL Problem Name Start Date End Date Resolution Snomed Code Not e Uterine size for dates discrepancy [id number] Asthma in [id number] [id number] Anxiety in [id number] zoloft Brijesh Calculation Initial Brijesh Date Initial [...] Date Ultra Sound Latest Days Gestation 0 [id number] 03/19/2022 09/26/19 23 0 Pre- Flowsheet Flowsheet [...] Weight in lbs Pre/Post Dialysis Refused Weight 117.814152756810 BP Diastolic BP Location Tested BP Systolic [...] Weight in lbs Pre/Post Dialysis Refused Weight 123.165792071475 BP Diastolic BP Location Tested BP Systolic BP Type 65 92 Fetus Heart Rate Present A 145 Fetus Movement A Yes Comments Doing well. Recheck TSH trice encinas. ANatomy US next visit. Flowsheet Date 05/14/2022 [...] Weight in lbs Pre/Post Dialysis Refused Weight 127.572261220273 BP Diastolic BP Location Tested BP Systolic [...] Weight in lbs Pre/Post Dialysis Refused Weight 130.149672252802 BP Diastolic BP Location Tested BP Systolic [...] Weight in lbs Pre/Post Dialysis Refused Weight 136.619100401251 BP Diastolic BP Location Tested BP Systolic [...] Weight in lbs Pre/Post Dialysis Refused Weight 136.100321027859 BP Diastolic BP Location Tested BP Systolic [...] Weight in lbs Pre/Post Dialysis Refused Weight 138.926129023287 BP Diastolic BP Location Tested BP Systolic [...] Weight in lbs Pre/Post Dialysis Refused Weight 140.866113392633 BP Diastolic BP Location Tested BP Systolic BP Type 69 100 Fetus Heart Rate Present A 160 Fetus Movement A Yes Comments Doing well. Hives resolved. Will call for preregistrations. Will choose sustainable agriculture specialist. US next for S<D. GBS next, discussed. [...] Weight in lbs Pre/Post Dialysis Refused Weight 143.065340661523 BP Diastolic BP Location Tested BP Systolic [...] Weight in lbs Pre/Post Dialysis Refused Weight 144.969494449442 BP Diastolic BP Location Tested BP Systolic [...] Weight in lbs Pre/Post Dialysis Refused Weight 145.3708785458 BP Diastolic BP Location Tested BP Systolic [...] Estim ated Date of Delivery false Thalassemia (Citizen Of [place], Algerian, Mediterranean, Or Background): MCV < 80 false Neural Tube Defect (Meningomyelocele, Spina Bifi da, Or Anencephaly) false Congenital Heart Defect false Down Syndrome false Charly-Sachs (eg, Jehovah'S Witness, Cajun, Turkish-Dundy) f alse Ashley Disease false Sickle Cell Disease Or Trait () false Hemophilia Or Other Blood Disorders false Muscular Dystrophy false Cystic Fibrosis false [place]'s Chorea false Intellectual Disability/Autism false If Yes, [...] Post Complications Tubal Sterilization Discharge Date Comments vinnie [facility] idural 38.3 false Karen Gallegos CNMarie anxiety, asthma Discharge Information Feeding Method Contraceptive Method Maternal HG B and HCT Levels
[2024-09-03 16:24] VITALS: BP 105/79; PULSE 90; RESP 16; TEMP 36.6; O2SAT 97
--- NOTE | 2024-09-03 16:28 | ED_ITS ---
HPI - Skin/Abscess/Foreign Bdy General Chief complaint: Skin/Abscess/Foreign Body Stated complaint: hives to L wrist x weeks History of Present Illness HPI narrative: 28-year-old female presents emergency department for rash dorsum of her left hand and wrist for 10 weeks. Patient states she used niko on her hand and wrist and a few days later developed a rash. She states the area is itchy. She has not tried anything on the rash for her symptoms. She is also requesting to have a TB test. She does not have a PCP. Related Data Home Medications ?Medication ?Instructions ?Recorded ?Confirmed ?Last Taken ?Type albuterol sulfate 90 mcg/actuation inhalation 08/29/22 09/10/22 09:00 History aerosol inhaler prenat.vits,danni,nvg-pizf-nvrbm 1 tablet 08/29/22 09/13/22 09:00 History Allergies Allergy/AdvReac Type Severity Reaction Status Date / Time doxycycline Allergy Rash Verified 09/14/22 06:32 Review of Systems Review of Systems: All systems reviewed & are unremarkable except as noted in HPI and below PMFSH Past Medical History Medical History No pertinent past medical history Surgical History Surgical History No pertinent past surgical history Family History Family History Father Diabetes mellitus Social History Social History Smoking status: Never smoker Substance use: never Lack of Transportation: No Lack of Food: Never True Current Housing: I Have Housing Concerned About Future Housing: No Difficulty Paying Gas/Electric Bills: No Difficulty Paying for Meds: No Currently Unemployed: No Education: Bachelor's Degree Difficulty w/ Childcare or Family Care: No Spiritual care concerns: No Exam Narrative: GENERAL: Well-appearing, well-nourished, and in no acute distress. HEAD: Normocephalic, atraumatic. EYES: EOMI. ENT: Nares clear, no rhinorrhea or epistaxis. Mucous membranes moist. NECK: Supple. CHEST: Clear to auscultation. No respiratory distress. HEART: Regular rate and rhythm. No murmur heard. Normal peripheral pulses. EXTREMITIES: Normal range of motion. No edema. SKIN: Erythematous patchy empiric rash to the dorsum of the left hand and left wrist. No use desquamation, no drainage, no warmth or fluctuation NEURO: No focal deficits. Alert and oriented x3 Course Vital Signs Vital signs: Vital Signs Temperature 97.8 F 09/03/24 16:24 Pulse Rate 90 09/03/24 16:24 Respiratory Rate 16 09/03/24 16:24 Blood Pressure 105/79 09/03/24 16:24 Pulse Oximetry 97 09/03/24 16:24 Oxygen Delivery Room Air 09/03/24 16:24 Temperature 97.8 F 09/03/24 16:24 Pulse Rate 90 09/03/24 16:24 Respiratory Rate 16 09/03/24 16:24 Blood Pressure 105/79 09/03/24 16:24 Pulse Oximetry 97 09/03/24 16:24 Oxygen Delivery Room Air 09/03/24 16:24 MDM - Skin/Abscess/Foreign Bdy MDM Narrative Medical decision making narrative: 28-year-old female presents to the emergency department for rash to the dorsum of her left hand and wrist for 2 weeks after using niko. Vital signs are stable. Exam is significant for erythematous pruritic patchy rash to the dorsum of the left hand and wrist consistent with allergic dermatitis. Will start patient on triamcinolone ointment. She is also requesting TB test. Advised to follow-up with PCP regarding this. She is given referral. Also discussed she may be able to get this performed at the [facility]. I discussed strict ED return precautions. She is agreeable with the plan verbalized understanding. Discharged in stable condition. Discharge Plan Discharge Clinical Impression: Allergic dermatitis Patient Disposition: Home Condition: Stable Instructions: Antibiotic Form, Dermatitis (ED) Additional Instructions: Your were evaluated in the emergency department for rash to her wrist and hand. Your exam is consistent with allergic dermatitis as discussed. Use the steroid cream that was prescribed. Take Benadryl as needed for itching. Follow up with the primary care provider referred you to. You can also get a TB test with primary or with the local health department. Return to the emergency department if you develop lip or tongue swelling, difficulty breathing, spreading of your rash, fever or other concerning symptoms. Patient Language: Yemeni Prescriptions: New triamcinolone acetonide 0.1 % ointment 1 applic topical BID 7 Days Qty: 15 0RF Rx Instructions: Do not use for more than 2 weeks at a time No Action betamethasone valerate 0.1 % cream 1 applic topical BID PRN (Reason: itching) Qty: 15 0RF albuterol sulfate 90 mcg/actuation HFA aerosol inhaler INHALATION prenat.vits,danni,lub-irqn-gtejt Tablet 1 tablet Follow-up/Referrals: Maureen Mcconnell DO [Physician] - PHYSICIAN,SMALL BUSINESS REPRESENTATIVE [Primary Care Provider] -
== END 2024-09-03 17:20 | disposition home or self-care (01) ==
PROVIDERS: Emergency Provider Physician Assistant
DX: T65.6X1A Toxic effect of paints and dyes, not elsewhere classified, accidental (unintentional), initial encounter (principal); L23.4 Allergic contact dermatitis due to dyes
CPT/HCPCS: 99283